=== PATIENT | male | born 1955 | race Caucasian/White ===

== ENCOUNTER 2022-05-08 11:31 | Emergency (ER) | payer OTHER, SELFPAY ==
[2022-05-08 11:35] VITALS: BP 147/84; PULSE 64; RESP 18; TEMP 36.7; O2SAT 95; BMI 36.6
--- NOTE | 2022-05-08 12:09 | XRR_ITS ---
PROCEDURE INFORMATION: Exam: XR Left Wrist Exam date and time: 05/08/2022 12:48 PM Age: 67 years old Clinical indication: Fall with blunt trauma involving the wrist. Recent carpal tunnel surgery 10 days ago. Head a healing wound to left palm. The sutures popped open and has a large open wound TECHNIQUE: Imaging protocol: Radiologic exam of the Left wrist. Views: 1 or 2 views. COMPARISON: No relevant prior studies available. FINDINGS: Bones/joints: There is widening of the scapholunate interval compatible with scapholunate ligament tear. The lunotriquetral ligament interval is maintained. No chondrocalcinosis is seen. [id number] osteoarthritis at the triscaphe and 1st carpometacarpal joints. 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 No acute fracture is identified. Soft tissues: There is marked soft tissue swelling about the wrist most prominent anteriorly. Apparent foci of gas likely reflect open wound. If clinically concern for necrotizing fasciitis or collection, consider MRI with and without contrast to further assess. XR/XR wrist LT 2V 40000 IMPRESSION: 1. There is marked soft tissue swelling about the wrist most prominent anteriorly. Apparent foci of gas likely reflect open wound. If clinically concerned for necrotizing fasciitis or abscess, consider CT with contrast to further assess. 2. Widening of the scapholunate interval compatible with scapholunate ligament tear. 3. [id number] osteoarthritis at the triscaphe and 1st carpometacarpal joints. 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
--- NOTE | 2022-05-08 12:18 | W.ED.EXTPRO ---
Documented by User: Julia Hwang 05/08/22 12:41 HPI - Extremity Problem General: Chief complaint: Extremity Injury, Upper Stated complaint: left hand laceration Time Seen by Provider: 05/08/22 11:41 History of Present Illness: pt had carpel tunnel surgery 1 week ago, was walking dog and dog and pt fell on left wrist and hand reopening surgical site Review of Systems General: Reports: 10 or more systems reviewed and unremarkable except in HPI and below Musc: Reports: extremity pain (left wrist, left hand, left lower extremity ) and extremity swelling (left wrist, LLE ) Skin/Breast: Reports: other (carpel tunnel surgical site opened, wound dehiscence ) PFSH ED PFSH: Medical History Carpal tunnel syndrome of left wrist No pertinent family history Surgical History History of carpal tunnel surgery Physical Exam Const: COMMON NORMALS: no acute distress, patient oriented x3, no limitations and alert GENERAL APPEARANCE: cooperative and comfortable ORIENTATION/CONSCIOUSNESS: Yes awake, Yes oriented to person, Yes oriented to place and Yes oriented to time HENMT: COMMON NORMALS: normocephalic, atraumatic, external ears normal, EAC's normal, TM's normal bilaterally and Normal external nose present HEAD & SCALP: normal to inspection, normocephalic and atraumatic FACE & SINUS: normal facial exam, sinuses nontender and face symmetric NOSE: Normal external nose present, Normal nares present and No nasal discharge present EXTERNAL EAR: Yes external ears normal EXTERNAL AUDITORY CANAL: EAC's normal TYMPANIC MEMBRANE: TM's normal bilaterally MOUTH: Normal oral and palatal mucosa present, lip normal and tongue normal THROAT: posterior oropharynx normal, tonsils normal and uvula midline Eye: COMMON NORMALS: Equal, round and reactive pupils present, EOMs intact bilaterally and conjunctivae normal GENERAL EYE: appearance normal, both eyes and all related structures and normal light reflex EYELID: eyelids normal CONJUNCTIVA: Yes conjunctivae normal PUPIL: Yes Equal, round and reactive pupils present EOM: Yes EOM abnormal DIRECT OPHTHALMOSCOPY: Yes normal light reflex Neck/C-Spine: COMMON NORMALS: full ROM, no lymphadenopathy, supple, no meningeal signs, no JVD and Thyroid normal GENERAL: Yes normal visual inspection THYROID: Thyroid normal CERVICAL SPINE: Yes cervical ROM normal and Yes normal cervical lordosis Lymph: LYMPHATIC: no lymphadenopathy noted Chest: COMMONS NORMALS: normal inspection of the chest and normal palpation of entire chest wall Resp: COMMON NORMALS: normal respiratory effort, No retractions and clear to auscultation bilaterally AUSCULTATION: clear to auscultation bilaterally Cardio: COMMON NORMALS: no JVD, regular rate, regular rhythm, S1 normal heart sound present, S2 normal heart sound present, No gallops present (Cardio), No clicks present (Cardio), No murmurs present (Cardio), No rub (Cardio) and Peripheral pulses 2+ throughout RATE: regular rate RHYTHM: regular rhythm HEART SOUNDS: S1 normal heart sound present and S2 normal heart sound present PERIPHERAL PULSES: Peripheral pulses 2+ throughout GI: COMMON NORMALS: Normal to inspection, nondistended, normoactive bowel sounds present, Soft to palpation, non-tender and no masses PALPATION: Yes Soft to palpation : COMMON NORMALS: Yes no CVA tenderness BLADDER/KIDNEY EXAM: Yes no CVA tenderness Back/Pelvis: COMMON NORMALS: no CVA tenderness, thoracic and lumbar spine normal to inspection, no thoracic nor lumbar tenderness and thoraco-lumbar ROM normal Extremity: COMMON NORMALS: capillary refill normal GENERAL: Yes normal exam except as noted LEFT UPPER EXTREMITY: Yes wrist Left wrist: Yes inspection (swollen ) and Yes ROM (decreased ROM) LEFT LOWER EXTREMITY: Yes lower leg Left lower leg: Yes inspection (normal but pain with palpation ) Neuro: COMMON NORMALS: patient oriented x3, moves all extremities, no focal motor deficits, no sensory deficits noted and gait normal SENSORIUM/ORIENTATION: Yes alert, Yes oriented to person, Yes oriented to place and Yes oriented to time MENINGEAL SIGNS: Yes no meningeal signs Psych: COMMON NORMALS: mental status grossly normal, Normal thought process present, cooperative, normal affect, speech normal and activity/motor behavior normal SPEECH: Yes normal speech THOUGHT PROCESS: Normal thought process present Skin: TRAUMA: laceration (reopening of suture site from carpel tunnel ) linear Course Vital Signs: Vital signs: Vital Signs Temperature 98.1 F 05/08/22 11:35 Pulse Rate 64 05/08/22 11:35 Respiratory Rate 18 05/08/22 11:35 Blood Pressure 147/84 05/08/22 11:35 Pulse Oximetry 95 05/08/22 11:35 Oxygen Delivery Me thod 05/08/22 11:35 MDM - Extremity (Nontraumatic) Medical Decision Making Pt was walking dog, dog got away from pt, pt fell and reopened his left carpel tunnel surgical site (1 week ago surgery); pain in wrist and hand and left lower leg. Pt is weight bearing and up to date on tetanus. Xrays ordered and will proceed with repair of wound once xrays obtained. Discharge Plan Discharge Patient Disposition: Home Clinical Impression: Surgical wound dehiscence Qualifiers: Encounter type: initial encounter Qualified Code(s): T81.31XA - Disruption of external operation (surgical) wound, not elsewhere classified, initial encounter Condition: Stable Prescriptions: New cephalexin 500 mg capsule 500 mg PO Q6H 7 Days Qty: 28 0RF Discharge Orders: Discharge ED (Routine); Ordered 05/08/22 Ordered By: Bubba Silver Referrals: Kiki Hannon FNP-C [Primary Care Provider] - Discharge Diet: Regular Discharge Activity: Limit activity as instructed Patient Instructions: Care For Your Stitches (ED), Wound Care (General) Activity Restrictions/Additional Instructions: Follow-up with medical provider as directed. Do not submerge wound in any kind of water until cleared by surgeon. Use wet-to-dry dressing on wound you can also apply thin layer of triple antibiotic ointment on wound daily. Keep wound covered throughout the day. Take medications as prescribed. Return to the ER or your medical provider if condition worsens. Please read and understand discharge instructions. Thank you for choosing [facility] for your healthcare needs today. Please realize this is an emergency room and that we are providing you with a medical screening exam and this may not be complete and all inclusive of all the testing and or work up that you may need to determine your ailment or severity of your illness. It is very important that you follow up as instructed or that you return to the Emergency Department should you have concerns or if your condition changes or worsens in any way. Sign Out Sign Out Data: Patient Sign Out occurred on 05/08/22 at 13:13. Patient's care was discussed, and care was transferred from to EMILIE Kellogg. Coding Level of Care Code ED Wire Rope Sales Representative for Chg Fwd Exam Comprehensive Documented by User: EMILIE Kellogg 05/08/22 21:06 HPI - Extremity Problem General: Chief complaint: Extremity Injury, Upper Stated complaint: left hand laceration Time Seen by Provider: 05/08/22 11:41 History of Present Illness: pt had carpel tunnel surgery 1 week ago, was walking dog and dog and pt fell on left wrist and hand reopening surgical site. [facility] ED PFSH: Medical History Carpal tunnel syndrome of left wrist No pertinent family history Surgical History History of carpal tunnel surgery Procedures Laceration Laceration 1: Site: upper extremity (wrist) Side (If applicable): left Size (cm): 6 (Dehisced surgical incision wound) Description: linear Depth: simple, single layer Local Anesthetic: lidocaine 1% Amount of anesthesia used (mL): 4 Pre-repair: irrigated extensively (With normal saline and beta iodine.) Skin layer closed with: nylon Size (cm): 3-0 Number of sutures: 7 Technique: simple, interrupted Course Vital Signs: Vital signs: Vital Signs Temperature 98.1 F 05/08/22 11:35 Pulse Rate 64 05/08/22 11:35 Respiratory Rate 18 05/08/22 11:35 Blood Pressure 147/84 05/08/22 11:35 Pulse Oximetry 95 05/08/22 11:35 Oxygen Delivery Me thod 05/08/22 11:35 MDM - Extremity (Nontraumatic) Medical Decision Making Pt was walking dog, dog got away from pt, pt fell and reopened his left carpel tunnel surgical site (1 week ago surgery); pain in wrist and hand and left lower leg. Pt is weight bearing and up to date on tetanus. Xrays ordered and will proceed with repair of wound once xrays obtained. 5 sutures were split upon arrival and were removed from wound. 2 sutures were still intact. Left wrist x-ray showed no acute fractures or findings. Lidocaine 1% was used as local wound was irrigated extensively with normal saline and beta iodine. 7 new sutures were placed to close up surgical wound site. See procedure note for details. Patient was discharged home with a prescription for Keflex. He was told to follow-up with his surgeon on TuesdayMay 10. Return to ED precautions given. Patient understood and agreed with plan. Imaging Data Xray Ortho: My impression: Left wrist x-ray showed no acute fractures or findings. Discharge Plan Discharge Patient Disposition: Home Clinical Impression: Surgical wound dehiscence Qualifiers: Encounter type: initial encounter Qualified Code(s): T81.31XA - Disruption of external operation (surgical) wound, not elsewhere classified, initial encounter Condition: Stable Prescriptions: New cephalexin 500 mg capsule 500 mg PO Q6H 7 Days Qty: 28 0RF Discharge Orders: Discharge ED (Routine); Ordered 05/08/22 Ordered By: Bubba Silver Referrals: Kiki Hannon FNP-C [Primary Care Provider] - Discharge Diet: Regular Discharge Activity: Limit activity as instructed Patient Instructions: Care For Your Stitches (ED), Wound Care (General) Activity Restrictions/Additional Instructions: Follow-up with medical provider as directed. Do not submerge wound in any kind of water until cleared by surgeon. Use wet-to-dry dressing on wound you can also apply thin layer of triple antibiotic ointment on wound daily. Keep wound covered throughout the day. Take medications as prescribed. Return to the ER or your medical provider if condition worsens. Please read and understand discharge instructions. Thank you for choosing [facility] for your healthcare needs today. Please realize this is an emergency room and that we are providing you with a medical screening exam and this may not be complete and all inclusive of all the testing and or work up that you may need to determine your ailment or severity of your illness. It is very important that you follow up as instructed or that you return to the Emergency Department should you have concerns or if your condition changes or worsens in any way. Sign Out Sign Out Data: Patient Sign Out occurred on 05/08/22 at 13:13. Patient's care was discussed, and care was transferred from to EMILIE Kellogg. Coding Level of Care Code ED Wire Rope Sales Representative for Sue Sparrow Exam Comprehensive
== END 2022-05-08 16:07 | disposition home or self-care (01) ==
PROVIDERS: Emergency Provider Physician Assistant; PCP Nurse Practitioner Family
DX: T81.31XA Disruption of external operation (surgical) wound, not elsewhere classified, initial encounter (principal); W18.30XA Fall on same level, unspecified, initial encounter
CPT/HCPCS: 12002; 73100; 99283

== ENCOUNTER 2023-11-07 21:05 | Emergency (ER) | payer OTHER, SELFPAY ==
[2023-11-07 21:09] VITALS: BP 143/90; PULSE 93; RESP 16; TEMP 36.9; O2SAT 98
[2023-11-07 21:17] VITALS: BP 125/86; RESP 18; O2SAT 96
--- NOTE | 2023-11-07 21:43 | CTR_ITS ---
PROCEDURE INFORMATION: Exam: CT Abdomen And Pelvis Without Contrast Exam date and time: 11/07/2023 10:58 PM Age: 68 years old Clinical indication: Abdominal pain; Localized; Prior surgery; Surgery date: 6+ months; Surgery type: Nephrectomy for donation. Stimulator. Jack; Patient HX: C/O lower abd pain with diarrhea x 2 days. History of lymphoma. ; Additional info: Diarrhea, pain, mid and low abdominal pain with diarrhea x2 days TECHNIQUE: Imaging protocol: Computed tomography of the abdomen and pelvis without contrast. Radiation optimization: All CT scans at this facility use at least one of these dose optimization techniques: automated exposure control; mA and/or kV adjustment per patient size (includes targeted exams where dose is matched to clinical indication); or iterative reconstruction. COMPARISON: CR XR lumbar spine 2-3V* [id number] 06/02/2017 11:05 AM RADIATION DOSE METRICS: Total DLP (mGy-cm): 1129.77 FINDINGS: Tubes, catheters and devices: Spinal stimulator. Lungs: Bibasilar opacity changes. Liver: Normal. No mass. Gallbladder and bile ducts: Cholelithiasis with prominence of the gallbladder, consider correlation with ultrasound. Pancreas: Normal. No ductal dilation. Spleen: Normal. No splenomegaly. Adrenal glands: Normal. No mass. Kidneys and ureters: Right kidney 13 mm interpolar region nonobstructing calculus. Stomach and bowel: Prominent fluid in the small bowel without dilation may reflect an enteritis. Diverticulosis without diverticulitis. Appendix: No evidence of appendicitis. Intraperitoneal space: Unremarkable. No free air. No significant fluid collection. Vasculature: Unremarkable. No abdominal aortic aneurysm. Lymph nodes: Unremarkable. No enlarged lymph nodes. Urinary bladder: Unremarkable as visualized. Reproductive: Unremarkable as visualized. Bones/joints: Unremarkable. No acute fracture. Soft tissues: Small bilateral fat containing inguinal hernias without bowel or inflammation. CT/CT abdomen pelvis wo con [id number] IMPRESSION: 1. Prominent fluid in the small bowel without dilation may reflect an enteritis. 2. Cholelithiasis with prominence of the gallbladder, consider correlation with ultrasound. 3. Diverticulosis without diverticulitis. 4. Bibasilar atelectasis. 5. Small bilateral fat containing inguinal hernias without bowel or inflammation. 6. Right kidney 13 mm interpolar region nonobstructing calculus.
--- NOTE | 2023-11-07 21:45 | ED_ITS ---
Documented by User: EMILIE Haynes 11/08/23 02:50 HPI - Abdominal Pain 2 General: Chief Complaint: Abdominal Pain Stated Complaint: Diah Time Seen by Provider: 11/07/23 21:07 Source: patient Mode of arrival: wheelchair Limitations: no limitations History of Present Illness: Patient presents emergency department today brought by family for evaluation treatment of continued episodes of diarrhea, mid and lower abdominal pains, and weakness. Family thought the patient had gotten a foodborne illness from a barbecue pork sandwich he ate on Tuesday night as symptoms started early Tuesday morning. However, patient has continued to have symptoms. He states he has had some many episodes of diarrhea he cannot even provide a ballpark. He states it is straight water which is somewhat green and anytime he tries to take anything in, he immediately has diarrhea. Patient has only had a hard-boiled egg today. He does admit that he has had some nausea but no vomiting. He also believes he has been running fever. Patient has no urinary symptoms but has not had much urinary output today. Patient typically is seen at the [facility]. He has had a colonoscopy in the past where they found polyps and he reports he has chronic issues with GERD. He is supposed be getting an upper GI scope scheduled sometime. Patient denies any recent antibiotic use. He states he is [place]. No others that he is aware of have similar symptoms. Patient informs other staff that he currently only has 1 kidney as he has donated a kidney in the past. Review of Systems 2 General: Reports: 10 or more systems reviewed and unremarkable except in HPI and below PFSH ED 2 PFSH: Medical History No pertinent family history Carpal tunnel syndrome of left wrist Surgical History History of carpal tunnel surgery Physical Exam 2 Const: COMMON NORMALS: patient oriented x3 and alert OTHER: Appears weak and fatigued. He is providing his own history. He is pleasant. Vital signs are stable. HENMT: COMMON NORMALS: normocephalic, atraumatic, hearing grossly normal bilaterally and moist oral mucous membranes HEAD & SCALP: normocephalic and atraumatic Eye: COMMON NORMALS: Equal, round and reactive pupils present, EOMs intact bilaterally and conjunctivae normal CONJUNCTIVA: Yes conjunctivae normal P UPIL: Yes Equal, round and reactive pupils present Neck/C-Spine: COMMON NORMALS: full ROM and no JVD Lymph: LYMPHATIC: no lymphadenopathy noted Resp: COMMON NORMALS: normal respiratory effort, No retractions, No use of accessory muscles and clear to auscultation bilaterally AUSCULTATION: clear to auscultation bilaterally Cardio: COMMON NORMALS: no JVD, regular rate and regular rhythm RATE: r egular rate RHYTHM: regular rhythm GI: OTHER: Hyperactive bowel sounds. Abdomen is soft but he does look somewhat bloated. He indicated some discomfort with palpation across his mid and lower abdomen. No specific point tenderness in the right or lower left quadrants. : COMMON NORMALS: Yes no CVA tenderness BLADDER/KIDNEY EXAM: Yes no CVA tenderness Back/Pelvis: COMMON NORMALS: no CVA tenderness, no thoracic nor lumbar tenderness and thoraco-lumbar ROM normal Extremity: COMMON NORMALS: normal to inspection, full ROM and capillary refill normal Neuro: COMMON NORMALS: patient oriented x3 SENSORIUM/ORIENTATION: Yes alert Psych: COMMON NORMALS: mental status grossly normal, Normal thought process present, cooperative, normal affect and activity/motor behavior normal T HOUGHT PROCESS: Normal thought process present Skin: COMMON NORMALS: no rashes or lesions noted and no wounds GENERAL SKIN EXAM: no rashes or lesions noted Course 2 Vital Signs: Vital signs: Vital Signs Temperature 98.4 F 11/07/23 21:09 Pulse Rate 81 11/08/23 00:23 Respiratory Rate 16 11/08/23 00:23 Blood Pressure 156/79 11/08/23 00:23 Pulse Oximetry 96 11/08/23 00:23 Oxygen Delivery Me thod Room Air 11/07/23 23:30 MDM - Abdominal Pain Medical Decision Making Patient presents today with greater than 24 hours of near constant diarrhea. Patient is extremely fatigued and as he only has 1 kidney, runs the risk of acute kidney injury or failure. Patient requested his nighttime medications while he is here. Nursing obtain his medications list and indicates he takes his morphine and gabapentin at this time. Patient shows no signs of an elevated white blood cell count-no signs of anemia. Patient has a slight decrease in sodium but overall, electrolytes are not significantly abnormal. Patient does have a noticeable decrease in his GFR and elevation in his creatinine though I am unsure of what his typical baseline is as I do not have any recent labs. I was notified by CT that the patient's kidney function is noticeably decreased and CT was obtained with contrast. As patient only has 1 kidney and, has acute decrease in GFR and elevated creatinine without a known baseline, however we did switch the CT examination to without contrast. Patient has been treated with fluids while here in the emergency department as well as antinausea medication to help settle his stomach. He also requested his nighttime morphine and gabapentin. Patient was able to provide a stool sample which showed positive findings of lactoferrin but no blood. C. difficile was also negative. CT examination showed signs of an enteritis. Incidentally there was findings of some gallstones but, it does not correlate with the patient's symptoms or location of pain at this time. Patient also has an incidental finding of a right-sided kidney stone but no signs of any ureteral involvement. Discussed the case with Dr. De Los Santos. Based on the patient's evaluation, symptoms, and CT scan, would recommend treating for the enteritis with antidiarrheal medication. Patient was treated with Bentyl here in the emergency department and a prescription was also sent to the pharmacy on his behalf. He was also given antinausea medicine. After fluids and treatment, patient appears much more comfortable. He is smiling and joking in the room. Discussed the importance of him staying hydrated during this time as he only has 1 kidney. We discussed strict return precautions regarding any change or worsening in his condition. Patient verbalizes understanding and agreement to treatment plan. Differential Diagnosis Likely abdominal pain, calculus of kidney and gastroenteritis; Unlikely acute appendicitis, constipation, diverticulitis, endometriosis, pancreatitis or small bowel obstruction Lab Data 11/07/23 22:13 11/07/23 22:13 Labs/Radiology: Radiology Impressions Abdomen/Pelvis CT 11/07/23 21:43 IMPRESSION: 1. Prominent fluid in the small bowel without dilation may reflect an enteritis. 2. Cholelithiasis with prominence of the gallbladder, consider correlation with ultrasound. 3. Diverticulosis without diverticulitis. 4. Bibasilar atelectasis. 5. Small bilateral fat containing inguinal hernias without bowel or inflammation. 6. Right kidney 13 mm interpolar region nonobstructing calculus. Laboratory Results WBC 6.54 10^3/uL (3.29-11.43) 11/07/23 22:13 RBC 5.01 10^6/uL (3.85-5.65) 11/07/23 22:13 Hgb 14.60 g/dL (11.27-16.99) 11/07/23 22:13 Hct 42.7 % (37-53) 11/07/23 22:13 MCV 85.2 fl (82-101) 11/07/23 22:13 MCH 29.1 pg (27-33) 11/07/23 22:13 MCHC 34.2 g/dL (30-55) 11/07/23 22:13 RDW 13.4 % (12.1-15.1) 11/07/23 22:13 Plt Count 145 10^3/cmm (157-399) L 11/07/23 22:13 MPV 11.1 fL (7.4-10.4) H 11/07/23 22:13 Neut % (Auto) 56.5 % 11/07/23 22:13 Lymph % (Auto) 30.4 % 11/07/23 22:13 Granite % (Auto) 11.6 % 11/07/23 22:13 Eos % (Auto) 0.9 % 11/07/23 22:13 Baso % (Auto) 0.3 % 11/07/23 22:13 Neut # (Auto) 3.69 10^3/uL (1.8-7.7) 11/07/23 22:13 Lymph # (Auto) 2.0 10^3/uL (0.8-4.8) 11/07/23 22:13 Granite # (Auto) 0.8 10^3/uL (0.2-0.9) 11/07/23 22:13 Eos # (Auto) 0.1 10^3/uL (0.0-0.8) 11/07/23 22:13 Baso # (Auto) 0.0 10^3/uL (0.0-0.1) 11/07/23 22:13 Nucleated RBC % (auto) 0 % 11/07/23 22:13 Nucleated RBCs # 0.0 /100WBC 11/07/23 22:13 Sodium 132 mmol/L (136-145) L 11/07/23 22:13 Potassium 3.2 mmol/L (3.5-5.1) L 11/07/23 22:13 Chloride 99 mmol/L (98-107) 11/07/23 22:13 Carbon Dioxide 17 mmol/L (22-29) L 11/07/23 22:13 Anion Gap 19.2 (5-19) H 11/07/23 22:13 BUN 31 mg/dL (8-23) H 11/07/23 22:13 Creatinine 1.8 mg/dL (0.7-1.2) H 11/07/23 22:13 GFR Calculation 37.8 mL/min (90-130) L 11/07/23 22:13 Glucose 108 mg/dL (65-115) 11/07/23 22:13 Calculated Osmolality 281 mOsm/kg (285-295) L 11/07/23 22:13 Calcium 8.9 mg/dL (8.5-10.5) 11/07/23 22:13 Magnesium 1.7 mg/dL (1.7-2.3) 11/07/23 22:13 Total Bilirubin 0.8 mg/dL (0.15-1.2) 11/07/23 22:13 AST 19 U/L (0-40) 11/07/23 22:13 ALT 8 U/L (0-41) 11/07/23 22:13 Alkaline Phosphatase 82 U/L (40-130) 11/07/23 22:13 Total Protein 7.4 g/dL (6.6-8.7) 11/07/23 22:13 Albumin 4.1 g/dL (3.5-5.2) 11/07/23 22:13 Globulin 3.3 g/dL (1.3-4.6) 11/07/23 22:13 Lipase 20 U/L (13-60) 11/07/23 22:13 Procalcitonin 0.24 ng/mL (0-0.5) 11/07/23 22:13 Urine Color Dark yellow (Yellow) 11/07/23 23:25 Urine Appearance Clear (CLEAR) 11/07/23 23:25 Urine pH 5 (5-7) 11/07/23 23:25 Ur Specific [place] 1.020 (1.005-1.030) 11/07/23 23:25 Urine Protein 1+ (Negative) H 11/07/23 23:25 Urine Glucose (UA) Norm (Normal) 11/07/23 23:25 Urine Ketones Negative (Negative) 11/07/23 23:25 Urine Blood Neg (Negative) 11/07/23 23:25 Urine Nitrate Negative (Negative) 11/07/23 23:25 Urine Bilirubin 1+ (Negative) H 11/07/23 23:25 Urine Urobilinogen Neg mg/dL (Negative) 11/07/23 23:25 Ur Leukocyte Esterase Negative (Negative) 11/07/23 23:25 Urine RBC None /hpf (0-2) 11/07/23 23:25 Urine WBC None /hpf (0-5) 11/07/23 23:25 Ur Squamous Epith Cells 0-4 /hpf (0-5) H 11/07/23 23:25 Amorphous Sediment Not Reportable 11/07/23 23:25 Urine Bacteria Trace /hpf (NONE) 11/07/23 23:25 Hyaline Casts 0-4 /lpf H 11/07/23 23:25 Urine Mucus 3+ /hpf 11/07/23 23:25 C. difficile (PCR) Negative (Negative) 11/07/23 21:57 Influenza Type A Ag negative (Negative) 11/07/23 22:01 Influenza Type B Ag negative (Negative) 11/07/23 22:01 SARS-CoV-2 Ag (Rapid) negative (Negative) 11/07/23 22:01 All radiology interpretation(s) finalized by discharge Discharge Plan Discharge Patient Disposition: Home Clinical Impression: Enteritis, Diarrhea Condition: Stable Prescriptions: New dicyclomine 10 mg capsule 10 mg PO TID Qty: 14 0RF ondansetron 4 mg tablet,disintegrating 4 mg PO Q8H 5 Days Qty: 15 0RF Discharge Orders: Discharge ED (Routine); Ordered 11/08/23 Ordered By: Linda Westbrook Referrals: Kiki Hannon FNP-C [Primary Care Provider] - Discharge Diet: Advance as tolerated Discharge Activity: Increase activity as tolerated Patient Instructions: Acute Diarrhea (ED) Activity Restrictions/Additional Instructions: Your evaluation today reveals more of a viral enteritis type pattern. This viral illness causes inflammation of the bowel-especially the small bowel, leading to recurrent episodes of diarrhea. The most important thing is to stay hydrated this time-especially if you only have 1 kidney. I am going to provide you medication to help calm your stomach and to help ease your diarrhea. We encourage you to increase and push fluids for the next couple of days. You may still have breakthrough episodes of diarrhea. Carefully watch for black or tarry stools or bright red blood per rectum. If these agree need to be seen or evaluated. You are unable to tolerate fluids due to any new onset of vomiting, worsening abdominal pain, or continued/worsening diarrhea we do recommend to be seen and reevaluated again. Coding Level of Care Code ED Director Immunology for Chg Fwd Documented by User: Phil De Los Santos MD 11/09/23 18:41 HPI - Abdominal Pain 2 General: Chief Complaint: Abdominal Pain Stated Complaint: Diah Time Seen by Provider: 11/07/23 21:07 [facility] ED 2 PFSH: Medical History No pertinent family history Carpal tunnel syndrome of left wrist Surgical History History of carpal tunnel surgery Course 2 Vital Signs: Vital signs: Vital Signs Temperature 98.4 F 11/07/23 21:09 Pulse Rate 81 11/08/23 00:23 Respiratory Rate 16 11/08/23 00:23 Blood Pressure 156/79 11/08/23 00:23 Pulse Oximetry 96 11/08/23 00:23 Oxygen Delivery Me thod Room Air 11/07/23 23:30 MDM - Abdominal Pain Medical Decision Making Patient presents today with greater than 24 hours of near constant diarrhea. Patient is extremely fatigued and as he only has 1 kidney, runs the risk of acute kidney injury or failure. Patient requested his nighttime medications while he is here. Nursing obtain his medications list and indicates he takes his morphine and gabapentin at this time. Patient shows no signs of an elevated white blood cell count-no signs of anemia. Patient has a slight decrease in sodium but overall, electrolytes are not significantly abnormal. Patient does have a noticeable decrease in his GFR and elevation in his creatinine though I am unsure of what his typical baseline is as I do not have any recent labs. I was notified by CT that the patient's kidney function is noticeably decreased and CT was obtained with contrast. As patient only has 1 kidney and, has acute decrease in GFR and elevated creatinine without a known baseline, however we did switch the CT examination to without contrast. Patient has been treated with fluids while here in the emergency department as well as antinausea medication to help settle his stomach. He also requested his nighttime morphine and gabapentin. Patient was able to provide a stool sample which showed positive findings of lactoferrin but no blood. C. difficile was also negative. CT examination showed signs of an enteritis. Incidentally there was findings of some gallstones but, it does not correlate with the patient's symptoms or location of pain at this time. Patient also has an incidental finding of a right-sided kidney stone but no signs of any ureteral involvement. Discussed the case with Dr. De Los Santos. Based on the patient's evaluation, symptoms, and CT scan, would recommend treating for the enteritis with antidiarrheal medication. Patient was treated with Bentyl here in the emergency department and a prescription was also sent to the pharmacy on his behalf. He was also given antinausea medicine. After fluids and treatment, patient appears much more comfortable. He is smiling and joking in the room. Discussed the importance of him staying hydrated during this time as he only has 1 kidney. We discussed strict return precautions regarding any change or worsening in his condition. Patient verbalizes understanding and agreement to treatment plan. Attending physician attestation I discussed the patient's history of present illness, physical exam findings, pertinent labs, pertinent radiographic exams and plan of care with the midlevel provider. I did personally have a [id number] evaluation and discussion with the patient regarding the plan of care. I did discuss with the patient given the CT scan findings and need for follow-up with her primary care and possibly general surgery for additional evaluation for her cholelithiasis and to evaluate her inguinal hernias. Patient was advised that there was a right renal calculi that was 13 mm and the importance of following up with urology for evaluation and possible treatment/removal. Medical Records I reviewed the patient's medical records. Lab Data I reviewed the patient's lab results. 11/07/23 22:13 11/07/23 22:13 Labs/Radiology: Radiology Impressions Abdomen/Pelvis CT 11/07/23 21:43 IMPRESSION: 1. Prominent fluid in the small bowel without dilation may reflect an enteritis. 2. Cholelithiasis with prominence of the gallbladder, consider correlation with ultrasound. 3. Diverticulosis without diverticulitis. 4. Bibasilar atelectasis. 5. Small bilateral fat containing inguinal hernias without bowel or inflammation. 6. Right kidney 13 mm interpolar region nonobstructing calculus. Laboratory Results WBC 6.54 10^3/uL (3.29-11.43) 11/07/23 22:13 RBC 5.01 10^6/uL (3.85-5.65) 11/07/23 22:13 Hgb 14.60 g/dL (11.27-16.99) 11/07/23 22:13 Hct 42.7 % (37-53) 11/07/23 22:13 MCV 85.2 fl (82-101) 11/07/23 22:13 MCH 29.1 pg (27-33) 11/07/23 22:13 MCHC 34.2 g/dL (30-55) 11/07/23 22:13 RDW 13.4 % (12.1-15.1) 11/07/23 22:13 Plt Count 145 10^3/cmm (157-399) L 11/07/23 22:13 MPV 11.1 fL (7.4-10.4) H 11/07/23 22:13 Neut % (Auto) 56.5 % 11/07/23 22:13 Lymph % (Auto) 30.4 % 11/07/23 22:13 Granite % (Auto) 11.6 % 11/07/23 22:13 Eos % (Auto) 0.9 % 11/07/23 22:13 Baso % (Auto) 0.3 % 11/07/23 22:13 Neut # (Auto) 3.69 10^3/uL (1.8-7.7) 11/07/23 22:13 Lymph # (Auto) 2.0 10^3/uL (0.8-4.8) 11/07/23 22:13 Granite # (Auto) 0.8 10^3/uL (0.2-0.9) 11/07/23 22:13 Eos # (Auto) 0.1 10^3/uL (0.0-0.8) 11/07/23 22:13 Baso # (Auto) 0.0 10^3/uL (0.0-0.1) 11/07/23 22:13 Nucleated RBC % (auto) 0 % 11/07/23 22:13 Nucleated RBCs # 0.0 /100WBC 11/07/23 22:13 Sodium 132 mmol/L (136-145) L 11/07/23 22:13 Potassium 3.2 mmol/L (3.5-5.1) L 11/07/23 22:13 Chloride 99 mmol/L (98-107) 11/07/23 22:13 Carbon Dioxide 17 mmol/L (22-29) L 11/07/23 22:13 Anion Gap 19.2 (5-19) H 11/07/23 22:13 BUN 31 mg/dL (8-23) H 11/07/23 22:13 Creatinine 1.8 mg/dL (0.7-1.2) H 11/07/23 22:13 GFR Calculation 37.8 mL/min (90-130) L 11/07/23 22:13 Glucose 108 mg/dL (65-115) 11/07/23 22:13 Calculated Osmolality 281 mOsm/kg (285-295) L 11/07/23 22:13 Calcium 8.9 mg/dL (8.5-10.5) 11/07/23 22:13 Magnesium 1.7 mg/dL (1.7-2.3) 11/07/23 22:13 Total Bilirubin 0.8 mg/dL (0.15-1.2) 11/07/23 22:13 AST 19 U/L (0-40) 11/07/23 22:13 ALT 8 U/L (0-41) 11/07/23 22:13 Alkaline Phosphatase 82 U/L (40-130) 11/07/23 22:13 Total Protein 7.4 g/dL (6.6-8.7) 11/07/23 22:13 Albumin 4.1 g/dL (3.5-5.2) 11/07/23 22:13 Globulin 3.3 g/dL (1.3-4.6) 11/07/23 22:13 Lipase 20 U/L (13-60) 11/07/23 22:13 Procalcitonin 0.24 ng/mL (0-0.5) 11/07/23 22:13 Urine Color Dark yellow (Yellow) 11/07/23 23:25 Urine Appearance Clear (CLEAR) 11/07/23 23:25 Urine pH 5 (5-7) 11/07/23 23:25 Ur Specific [place] 1.020 (1.005-1.030) 11/07/23 23:25 Urine Protein 1+ (Negative) H 11/07/23 23:25 Urine Glucose (UA) Norm (Normal) 11/07/23 23:25 Urine Ketones Negative (Negative) 11/07/23 23:25 Urine Blood Neg (Negative) 11/07/23 23:25 Urine Nitrate Negative (Negative) 11/07/23 23:25 Urine Bilirubin 1+ (Negative) H 11/07/23 23:25 Urine Urobilinogen Neg mg/dL (Negative) 11/07/23 23:25 Ur Leukocyte Esterase Negative (Negative) 11/07/23 23:25 Urine RBC None /hpf (0-2) 11/07/23 23:25 Urine WBC None /hpf (0-5) 11/07/23 23:25 Ur Squamous Epith Cells 0-4 /hpf (0-5) H 11/07/23 23:25 Amorphous Sediment Not Reportable 11/07/23 23:25 Urine Bacteria Trace /hpf (NONE) 11/07/23 23:25 Hyaline Casts 0-4 /lpf H 11/07/23 23:25 Urine Mucus 3+ /hpf 11/07/23 23:25 C. difficile (PCR) Negative (Negative) 11/07/23 21:57 Influenza Type A Ag negative (Negative) 11/07/23 22:01 Influenza Type B Ag negative (Negative) 11/07/23 22:01 SARS-CoV-2 Ag (Rapid) negative (Negative) 11/07/23 22:01 Discharge Plan Discharge Patient Disposition: Home Clinical Impression: Enteritis, Diarrhea Condition: Stable Prescriptions: New dicyclomine 10 mg capsule 10 mg PO TID Qty: 14 0RF ondansetron 4 mg tablet,disintegrating 4 mg PO Q8H 5 Days Qty: 15 0RF Discharge Orders: Discharge ED (Routine); Ordered 11/08/23 Ordered By: Linda Westbrook Referrals: Kiki Hannon FNP-C [Primary Care Provider] - Discharge Diet: Advance as tolerated Discharge Activity: Increase activity as tolerated Patient Instructions: Acute Diarrhea (ED) Activity Restrictions/Additional Instructions: Your evaluation today reveals more of a viral enteritis type pattern. This viral illness causes inflammation of the bowel-especially the small bowel, leading to recurrent episodes of diarrhea. The most important thing is to stay hydrated this time-especially if you only have 1 kidney. I am going to provide you medication to help calm your stomach and to help ease your diarrhea. We encourage you to increase and push fluids for the next couple of days. You may still have breakthrough episodes of diarrhea. Carefully watch for black or tarry stools or bright red blood per rectum. If these agree need to be seen or evaluated. You are unable to tolerate fluids due to any new onset of vomiting, worsening abdominal pain, or continued/worsening diarrhea we do recommend to be seen and reevaluated again. Coding Level of Care Code ED Director Immunology for Sue Sparrow
[2023-11-07] MEDS: sodium chloride 0.9% 1,000 ML 999 ML IV (22:14)
[2023-11-07] MEDS: metoclopramide 5 mg/mL SDV 2 mL 10 MG IVP (22:15)
[2023-11-07 22:20] VITALS: BP 148/95; PULSE 74; RESP 16; O2SAT 97
[2023-11-07 22:20] LABS: Basophils % 0.3 %; Eosinophils # 0.1 10^3/uL (0.0-0.8); Eosinophils % 0.9 %; Hematocrit 42.7 % (37-53); Lymphocytes % 30.4 %; Mean Corpuscular HGB Conc 34.2 g/dL (30-55); Mean Corpuscular Hemoglobin 29.1 pg (27-33); Mean Corpuscular Volume 85.2 fl (82-101); Mean Platelet Volume 11.1 fL (7.4-10.4); Monocytes # 0.8 10^3/uL (0.2-0.9); Monocytes % 11.6 %; Neutrophils # 3.69 10^3/uL (1.8-7.7); Neutrophils % 56.5 %; Nucleated Red Blood Cells % 0 %; Platelet Count 145 10^3/cmm (157-399); Red Blood Count 5.01 10^6/uL (3.85-5.65); Red Cell Distribution Width 13.4 % (12.1-15.1); White Blood Count 6.54 10^3/uL (3.29-11.43)
[2023-11-07 22:30] VITALS: BP 141/91; PULSE 84; RESP 16; O2SAT 92
[2023-11-07 22:38] LABS: Influenza A by IFA negative (Negative); Influenza B by IFA negative (Negative); SARS Covid-2 Antigen negative (Negative)
[2023-11-07 22:45] LABS: Alanine Aminotransferase 8 U/L (0-41); Albumin Level 4.1 g/dL (3.5-5.2); Alkaline Phosphatase 82 U/L (40-130); Anion Gap 19.2 (5-19); Aspartate Amino Transferase 19 U/L (0-40); Blood Urea Nitrogen 31 mg/dL (8-23); Calcium 8.9 mg/dL (8.5-10.5); Carbon Dioxide 17 mmol/L (22-29); Chloride 99 mmol/L (98-107); Creatinine Clr Calc Pharmacy 57.1115; Globulin 3.3 g/dL (1.3-4.6); Glomerular Filtration Rate 37.8 mL/min (90-130); Glucose 108 mg/dL (65-115); Lipase 20 U/L (13-60); Magnesium 1.7 mg/dL (1.7-2.3); Osmolality Calculated 281 mOsm/kg (285-295); Potassium 3.2 mmol/L (3.5-5.1); Sodium 132 mmol/L (136-145); Total Bilirubin 0.8 mg/dL (0.15-1.2); Total Protein 7.4 g/dL (6.6-8.7)
[2023-11-07 22:50] LABS: Procalcitonin 0.24 ng/mL (0-0.5)
[2023-11-07 22:57] LABS: C.Diff PCR (Lab) NEGATIVE (Negative)
[2023-11-07 23:00] VITALS: PULSE 94; O2SAT 95
[2023-11-07] MEDS: gabapentin 400 mg Capsule 800 MG PO (23:28)
[2023-11-07] MEDS: morphine ER (12 HR) 15 mg Tablet PO (23:28)
[2023-11-07 23:30] VITALS: BP 143/84; PULSE 90; RESP 18; O2SAT 96
[2023-11-07 23:43] LABS: Add Urine Microscopic? YES; Bilirubin Urine 1+ (Negative); Blood Urine Neg (Negative); Glucose Urine UA Norm (Normal); Ketones Urine Negative (Negative); Leukocyte Esterase Urine Negative (Negative); Nitrate Urine Negative (Negative); Protein Urine 1+ (Negative); Urine Appearance Clear (CLEAR); Urine Color Dark Yellow (Yellow); Urobilinogen Urine Neg (Negative); pH Urine 5 (5-7)
[2023-11-07 23:44] LABS: Add Urine Culture? No; Bacteria Urine TRACE /hpf; Hyaline Casts Urine 0-4 /lpf; Mucus Urine 3+ /hpf; Squamous Epithelial Cell Urine 0-4 /hpf (0-5)
[2023-11-07] MEDS: dicyclomine 20 mg Tablet PO (23:53)
[2023-11-08] VITALS: BP 162/104; PULSE 79; RESP 18; O2SAT 96
[2023-11-08 00:23] VITALS: BP 156/79; PULSE 81; RESP 16; O2SAT 96
== END 2023-11-08 00:26 | disposition home or self-care (01) ==
PROVIDERS: Emergency Provider Physician Assistant; PCP Nurse Practitioner Family
DX: K52.9 Noninfective gastroenteritis and colitis, unspecified (principal); Z11.52 Encounter for screening for COVID-19
CPT/HCPCS: 74176; 80053; 81001; 82274; 83630; 83690; 83735; 84145; 85025; 87045; 87177; 87209; 87426; 87427; 87449; 87493; 87804; 96374; 99285; J2765; J7030

== ENCOUNTER 2023-12-05 22:10 | Emergency (ER) | payer OTHER, SELFPAY ==
[2023-12-05 22:14] VITALS: BP 165/101; PULSE 65; RESP 18; TEMP 36.6; O2SAT 94
--- NOTE | 2023-12-05 22:35 | W.ED.SKABFB ---
HPI - Skin/Abscess/Foreign Bdy General: Chief complaint: Skin/Abscess/Foreign Body Stated complaint: Fish Hook in Hand Time Seen by Provider: 12/05/23 22:26 History of Present Illness: Patient has a fishhook stuck in the tip of his index finger of his right hand. He tried it it out but could not. He is up-to-date on his tetanus. Review of Systems Narrative: Constitutional symptoms: Negative except as documented in HPI. Skin symptoms: Negative except as documented in HPI. Eye symptoms: Negative except as documented in HPI. ENMT symptoms: Negative except as documented in HPI. Respiratory symptoms: Negative except as documented in HPI. Cardiovascular symptoms: Negative except as documented in HPI. Gastrointestinal symptoms: Negative except as documented in HPI. Genitourinary symptoms: Negative except as documented in HPI. Musculoskeletal symptoms: Negative except as documented in HPI. Neurologic symptoms: Negative except as documented in HPI. Psychiatric symptoms: Negative except as documented in HPI. Endocrine symptoms: Negative except as documented in HPI. [facility] ED PFSH: Medical History No pertinent family history Carpal tunnel syndrome of left wrist Surgical History History of carpal tunnel surgery Physical Exam Narrative: EXAM NARRATIVE: General: Alert, no acute distress. Skin: warm and dry, fishhook in the distal palmar side of right hand index finger. Head: Normocephalic Neck: Trachea midline Eye: Extraocular movements are intact. Ears, nose, mouth and throat: Oral mucosa moist Respiratory: Respirations are non-labored Musculoskeletal: Normal ROM Neurological: Alert and oriented, No focal neurological deficit observed. Psychiatric: Cooperative, appropriate mood & affect. Course Vital Signs: Vital signs: Vital Signs Temperature 98 F 12/05/23 22:14 Pulse Rate 65 12/05/23 22:14 Respiratory Rate 18 12/05/23 22:14 Blood Pressure 165/101 12/05/23 22:14 Pulse Oximetry 94 12/05/23 22:14 Oxygen Delivery Me thod Room Air 12/05/23 22:14 MDM - Skin/Abscess/Foreign Bdy Medicial Decision Making Procedure note: 2 cc of 2% lidocaine were injected into the tip of the finger. I used a pair pliers to pull the fishhook free. This was tolerated well. Assessment and plan: [place] in finger/foreign body - Discharged home - Discussed plan with patient. Answered any questions. - Evaluation and treatment of this problem were appropriate in the emergency setting. No radiology studies performed this visit Discharge Plan Discharge Patient Disposition: Home Clinical Impression: Fish hook in finger Condition: Stable Prescriptions: No Action dicyclomine 10 mg capsule 10 mg PO TID Qty: 14 0RF Discharge Orders: Discharge ED (Routine); Ordered 12/05/23 Ordered By: Pilar Madsen Referrals: Kiki Hannon FNP-C [Primary Care Provider] - 4-7 days Discharge Diet: Usual diet Discharge Activity: Resume usual activity Patient Instructions: Puncture Wound (ED) Activity Restrictions/Additional Instructions: Thank you for choosing [facility] for your healthcare needs today. Please realize this is an emergency room and that we are providing you with a medical screening exam and this may not be complete and all inclusive of all the testing and or work up that you may need to determine your ailment or severity of your illness. You have been screened and evaluated and felt safe for discharge. Health conditions do change or evolve sometimes and as such it is important that you follow up with your Primary Doctor to be re checked, 3-5 days is a general good time frame for follow up. You are always welcome to return to the ED for re assessment if your symptoms are worsening or you have new concerns Coding Level of Care Code ED Log Loader Helper for Sue Sparrow
[2023-12-05] MEDS: bacitracin ointment Pkt 1 EACH TOPICAL (22:50)
[2023-12-05 22:51] VITALS: BP 165/101; PULSE 65; RESP 18; TEMP 36.6; O2SAT 94
== END 2023-12-05 22:52 | disposition home or self-care (01) ==
PROVIDERS: Emergency Provider Emergency Medicine; PCP Nurse Practitioner Family
DX: S61.240A Puncture wound with foreign body of right index finger without damage to nail, initial encounter (principal); W26.8XXA Contact with other sharp object(s), not elsewhere classified, initial encounter
CPT/HCPCS: 99283

== ENCOUNTER 2024-12-15 13:03 | Emergency (ER) | payer OTHER, MEDICARE, SELFPAY ==
[2024-12-15 13:23] VITALS: BP 136/78; PULSE 92; RESP 17; TEMP 37.7; O2SAT 96; BMI 36.6
[2024-12-15 15:50] LABS: Adenovirus Not Detected (NOT DETECT); Chlamydia Pneumoniae Not Detected (NOT DETECT); Coronavirus 229E,HKU1,NL63,OC4 Not Detected (NOT DETECT); Human Metapneumovirus Not Detected (NOT DETECT); Human Rhinovirus/Enterovirus Not Detected (NOT DETECT); Influenza A Not Detected (NOT DETECT); Influenza A H1 Not Detected (NOT DETECT); Influenza A H1-2009 Not Detected (NOT DETECT); Influenza A H3 Not Detected (NOT DETECT); Influenza B Not Detected (NOT DETECT); Mycoplasma Pneumoniae Not Detected (NOT DETECT); Parainfluenza Virus Type 1 Not Detected (NOT DETECT); Parainfluenza Virus Type 2 Not Detected (NOT DETECT); Parainfluenza Virus Type 3 Detected (NOT DETECT); Parainfluenza Virus Type 4 Not Detected (NOT DETECT); Respiratory Syncytial Virus A Not Detected (NOT DETECT); Respiratory Syncytial Virus B Not Detected (NOT DETECT); SARS-COV-2 Not Detected (NOT DETECT)
[2024-12-15 16:56] VITALS: BP 138/88; PULSE 81; RESP 18; O2SAT 95
[2024-12-15] MEDS: sodium chloride 0.9% 1,000 ML 999 ML IV (17:15)
--- NOTE | 2024-12-15 17:20 | ED_ITS ---
HPI - Nausea/Vomiting/Diarrhea 2 General: Chief complaint: Nausea/Vomiting/Diarrhea Stated complaint: fever, coughing Time Seen by Provider: 12/15/24 16:45 History of Present Illness: 69-year-old male presents to the emergen cy room with complaints of cough fever nausea vomiting congestion weakness. He has also had some ageusia. Patient has had a nonproductive cough loose stools myalgias headache low-grade fever. Associated symtoms: Reports fatigue and malaise; Denies chest pain or dysuria Related Data Previous Rx's ?Medication ?Instructions ?Recorded dicyclomine 10 mg capsule 10 mg PO TID #14 caps Allergies Allergy/AdvReac Type Severity Reaction Status Date / Time naproxen (From Naprosyn) Allergy Unknown Verified 11/07/23 21:17 rofecoxib (From Vioxx) Allergy Unknown Verified 11/07/23 21:17 Review of Systems 2 Const: Reports: chills, body aches, fatigue and malaise; Denies: fever(s) Card: Denies: chest pain Resp: Denies: dyspnea GI: Denies: abdominal pain : Denies: dysuria, urinary frequency or urinary urgency Musc: Denies: neck pain or back pain Skin/Breast: Denies: rash PFSH ED 2 PFSH: Medical History No pertinent family history Carpal tunnel syndrome of left wrist Surgical History History of carpal tunnel surgery Physical Exam 2 Const: GENERAL APPEARANCE: cooperative ORIENTATION/CONSCIOUSNESS: Yes awake, Yes oriented to person, Yes oriented to place and Yes oriented to time HENMT: COMMON NORMALS: normocephalic, atraumatic and hearing grossly normal bilaterally HEAD & SCALP: normocephalic and atraumatic Resp: COMMON NORMALS: normal respiratory effort, No retractions, No use of accessory muscles and clear to auscultation bilaterally AUSCULTATION: clear to auscultation bilaterally Cardio: COMMON NORMALS: regular rate, regular rhythm and No murmurs present (Cardio) RATE: regular rate RHYTHM: regular rhythm GI: COMMON NORMALS: Soft to palpation and No hepatosplenomegaly present A USCULTATION: Yes normoactive bowel sounds PALPATION: Yes Soft to palpation, No Tenderness to palpation present (GI), No Guarding due to palpation present (GI) and Yes No hepatosplenomegaly present Extremity: COMMON NORMALS: normal to inspection, capillary refill normal, no clubbing, cyanosis or edema, no calf tenderness and no pedal edema Neuro: SENSORIUM/ORIENTATION: Yes oriented to person, Yes oriented to place and Yes oriented to time Skin: COMMON NORMALS: no rashes or lesions noted GENERAL SKIN EXAM: no rashes or lesions noted Course 2 Vital Signs: Vital signs: Vital Signs Temperature 99.8 F H 12/15/24 13:23 Pulse Rate 92 12/15/24 13:23 Respiratory Rate 17 12/15/24 13:23 Blood Pressure 136/78 12/15/24 13:23 Pulse Oximetry 96 12/15/24 13:23 Oxygen Delivery Me thod Room Air 12/15/24 13:23 MDM - Nausea/Vomiting/Diarrhea Medical Decision Making Labs and imaging did not show any secondary infection we will discharge patient home supportive cares and follow-up with primary care as needed Medical Records I reviewed the patient's medical records. Lab Data I reviewed the patient's lab results. 12/15/24 17:15 12/15/24 17:15 Laboratory Results WBC 4.05 10^3/uL (3.29-11.43) 12/15/24 17:15 RBC 4.78 10^6/uL (3.85-5.65) 12/15/24 17:15 Hgb 13.50 g/dL (11.27-16.99) 12/15/24 17:15 Hct 42.7 % (37-53) 12/15/24 17:15 MCV 89.3 fl (82-101) 12/15/24 17:15 MCH 28.2 pg (27-33) 12/15/24 17:15 MCHC 31.6 g/dL (30-55) 12/15/24 17:15 RDW 13.2 % (12.1-15.1) 12/15/24 17:15 Plt Count 112 10^3/cmm (157-399) L 12/15/24 17:15 MPV 12.0 fL (7.4-10.4) H 12/15/24 17:15 Neut % (Auto) 59.5 % 12/15/24 17:15 Lymph % (Auto) 26.4 % 12/15/24 17:15 Miller % (Auto) 9.9 % 12/15/24 17:15 Eos % (Auto) 3.5 % 12/15/24 17:15 Baso % (Auto) 0.7 % 12/15/24 17:15 Neut # (Auto) 2.41 10^3/uL (1.8-7.7) 12/15/24 17:15 Lymph # (Auto) 1.1 10^3/uL (0.8-4.8) 12/15/24 17:15 Miller # (Auto) 0.4 10^3/uL (0.2-0.9) 12/15/24 17:15 Eos # (Auto) 0.1 10^3/uL (0.0-0.8) 12/15/24 17:15 Baso # (Auto) 0.0 10^3/uL (0.0-0.1) 12/15/24 17:15 Nucleated RBC % (auto) 0 % 12/15/24 17:15 Nucleated RBCs # 0.0 /100WBC 12/15/24 17:15 Sodium 137 mmol/L (136-145) 12/15/24 17:15 Potassium 4.1 mmol/L (3.5-5.1) 12/15/24 17:15 Chloride 101 mmol/L (98-107) 12/15/24 17:15 Carbon Dioxide 23 mmol/L (22-29) 12/15/24 17:15 Anion Gap 17.1 (5-19) 12/15/24 17:15 BUN 12 mg/dL (8-23) 12/15/24 17:15 Creatinine 1.4 mg/dL (0.7-1.2) H 12/15/24 17:15 GFR Calculation 50.4 mL/min (90-130) L 12/15/24 17:15 Glucose 84 mg/dL (65-115) 12/15/24 17:15 Calculated Osmolality 283 mOsm/kg (285-295) L 12/15/24 17:15 Calcium 8.6 mg/dL (8.5-10.5) 12/15/24 17:15 Total Bilirubin 0.5 mg/dL (0.15-1.2) 12/15/24 17:15 AST 16 U/L (0-40) 12/15/24 17:15 ALT 6 U/L (0-41) 12/15/24 17:15 Alkaline Phosphatase 67 U/L (40-130) 12/15/24 17:15 Total Protein 6.7 g/dL (6.6-8.7) 12/15/24 17:15 Albumin 3.8 g/dL (3.5-5.2) 12/15/24 17:15 Globulin 2.9 g/dL (1.3-4.6) 12/15/24 17:15 Adenovirus (PCR) Not detected (NOT DETECT) 12/15/24 13:50 C. pneumoniae DNA (PCR) Not detected (NOT DETECT) 12/15/24 13:50 Coronavirus 229E (PCR) Not detected (NOT DETECT) 12/15/24 13:50 Human Metapneumovir PCR Not detected (NOT DETECT) 12/15/24 13:50 Influenza A (H1) PCR Not detected (NOT DETECT) 12/15/24 13:50 Influ A (H1/09) PCR Not detected (NOT DETECT) 12/15/24 13:50 Influenza A (H3) PCR Not detected (NOT DETECT) 12/15/24 13:50 Influenza Type A (PCR) Not detected (NOT DETECT) 12/15/24 13:50 Influenza Type B (PCR) Not detected (NOT DETECT) 12/15/24 13:50 M. pneumoniae (PCR) Not detected (NOT DETECT) 12/15/24 13:50 Parainfluenza 1 (PCR) Not detected (NOT DETECT) 12/15/24 13:50 Parainfluenza 2 (PCR) Not detected (NOT DETECT) 12/15/24 13:50 Parainfluenza 3 (PCR) Detected (NOT DETECT) A 12/15/24 13:50 Parainfluenza 4 (PCR) Not detected (NOT DETECT) 12/15/24 13:50 RSV Type A (PCR) Not detected (NOT DETECT) 12/15/24 13:50 RSV Type B (PCR) Not detected (NOT DETECT) 12/15/24 13:50 Entero/Rhino (PCR) Not detected (NOT DETECT) 12/15/24 13:50 SARS-CoV-2 (PCR) Not detected (NOT DETECT) 12/15/24 13:50 XR interpretation done by ED provider, pending radiology final review Discharge Plan Discharge Patient Disposition: Home Clinical Impression: Parainfluenza Condition: Stable Prescriptions: No Action dicyclomine 10 mg capsule 10 mg PO TID Qty: 14 0RF Discharge Orders: Discharge ED (Routine); Ordered 12/15/24 Ordered By: Miky Coelho Referrals: Kiki Hannon FNP-C [Primary Care Provider, Family Practice] Discharge Diet: Usual diet Patient Instructions: Influenza (ED), Opioid Safety, Pain Management Activity Restrictions/Additional Instructions: Thank you for choosing [facility] for your healthcare needs today. It is very important that you follow up as instructed or that you return to the Emergency Department should you have concerns or if your condition changes or worsens in any way. You were seen in the emergency room with complaints of flulike symptoms. Respiratory panel showed parainfluenza was positive. Your other labs and chest x-ray did not show any acute abnormality. There is no treatment for para influenza. Discharge information you were given was for influenza which is similar. Supportive cares Tylenol and ibuprofen increase fluid intake Tylenol and ibuprofen for fever and muscle aches Print Language: Palestinian Coding Level of Care Code ED Specialties Operator for Sue Sparrow
[2024-12-15 17:23] LABS: Basophils % 0.7 %; Eosinophils # 0.1 10^3/uL (0.0-0.8); Eosinophils % 3.5 %; Hematocrit 42.7 % (37-53); Lymphocytes # 1.1 10^3/uL (0.8-4.8); Lymphocytes % 26.4 %; Mean Corpuscular HGB Conc 31.6 g/dL (30-55); Mean Corpuscular Hemoglobin 28.2 pg (27-33); Mean Corpuscular Volume 89.3 fl (82-101); Monocytes # 0.4 10^3/uL (0.2-0.9); Monocytes % 9.9 %; Neutrophils # 2.41 10^3/uL (1.8-7.7); Neutrophils % 59.5 %; Nucleated Red Blood Cells % 0 %; Platelet Count 112 10^3/cmm (157-399); Red Blood Count 4.78 10^6/uL (3.85-5.65); Red Cell Distribution Width 13.2 % (12.1-15.1); White Blood Count 4.05 10^3/uL (3.29-11.43)
[2024-12-15 17:26] VITALS: BP 163/87; PULSE 76; RESP 21; O2SAT 97
--- NOTE | 2024-12-15 17:32 | XRR_ITS ---
PROCEDURE INFORMATION: Exam: XR Chest Exam date and time: 12/15/2024 5:35 PM Age: 69 years old Clinical indication: Dyspnea; PT presents to ED with C/O fever, n/v, cough, congestion, weakness, altered taste x1 week. ; Additional info: Dyspnea/cough TECHNIQUE: Imaging protocol: Radiologic exam of the chest. Views: 1 view. COMPARISON: CT abdomen pelvis con [id number] 11/07/2023 10:58 PM FINDINGS: Lungs: Mild emphysematous changes suspected. Pleural spaces: Unremarkable. No pleural effusion. No pneumothorax. Heart/Mediastinum: Unremarkable. No cardiomegaly. Bones/joints: Unremarkable. XR/XR chest 1V portable [id number] IMPRESSION: 1. Negative for infiltrate. 2. Mild emphysematous changes suspected.
[2024-12-15 17:41] LABS: Alanine Aminotransferase 6 U/L (0-41); Albumin Level 3.8 g/dL (3.5-5.2); Alkaline Phosphatase 67 U/L (40-130); Anion Gap 17.1 (5-19); Aspartate Amino Transferase 16 U/L (0-40); Blood Urea Nitrogen 12 mg/dL (8-23); Calcium 8.6 mg/dL (8.5-10.5); Carbon Dioxide 23 mmol/L (22-29); Chloride 101 mmol/L (98-107); Globulin 2.9 g/dL (1.3-4.6); Glomerular Filtration Rate 50.4 mL/min (90-130); Glucose 84 mg/dL (65-115); Osmolality Calculated 283 mOsm/kg (285-295); Potassium 4.1 mmol/L (3.5-5.1); Sodium 137 mmol/L (136-145); Total Bilirubin 0.5 mg/dL (0.15-1.2); Total Protein 6.7 g/dL (6.6-8.7)
[2024-12-15 18:30] VITALS: BP 130/83; PULSE 78; RESP 15; O2SAT 94
== END 2024-12-15 18:30 | disposition home or self-care (01) ==
PROVIDERS: Emergency Provider Family Medicine; PCP Nurse Practitioner Family
DX: B34.8 Other viral infections of unspecified site (principal); Z11.52 Encounter for screening for COVID-19
CPT/HCPCS: 36415; 71045; 80053; 85025; 87486; 87581; 87633; 99284; J7030

== ENCOUNTER 2025-07-19 13:45 | Emergency (ER) | payer OTHER, SELFPAY ==
[2025-07-19 13:44] VITALS: BP 136/97; PULSE 91; RESP 16; TEMP 36.3; O2SAT 95; BMI 35.4
--- OUTSIDE RECORDS SUMMARY | 2025-07-19 13:50 | XMS_ITS ---
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 Past Treatment and Therapy Plans No past plan information found. Lifetime Dose Tracking * Chemical Lifetime Dose Automatic Entry Manual Entr y Effective Dose 34.3 mSv 34.3 mSv 0 mSv Total DLP 2,730 DLP 2,730 DLP 0 DLP CTDIvol Max 60 mGy 60 mGy 0 mGy CTDIvol Min 55.4 mGy 55.4 mGy 0 mGy
--- OUTSIDE RECORDS SUMMARY | 2025-07-19 13:50 | XMS_ITS | Clinical Summary ---
Author Organization [facility] Address [address] [place] [address] Phone Care Team Providers Care Car Rental Clerk Name Role Phone Alyssia Holman PRIME BROKER Primary Care Prov ider Allergies Active Allergy Reactions Criticality Noted Date Comments Gemfibrozil Other (See Comments) 07/09/2008 Can't remember Lisinopril Cough Low 02/18/2012 Naproxen Hives,Itching,Weakness High 09/11/2013 Rofecoxib Rash Low 10/05/2007 Medications gabapentin (NEURONTIN) 300 mg capsule Take 1 Capsule by mouth 2 times daily. 8 Active finasteride (PROSCAR) 5 mg tablet Take 1 Tablet by mouth daily outside sales engineer . 8 Active morphine (MS CONTIN) 15 mg Controlled Release tablet Take 1 Tablet by mouth 3 times daily. 8 Active docusate sodium (COLACE) 100 mg capsule Take 1 Capsule (100 mg) by mouth 2 times daily While taking pain medicine to reduce constipation risk. 20 Capsule 1 9 Active amLODIPine (NORVASC) 2.5 mg tablet Take 2.5 mg by mouth daily. 9 Active aspirin (ECOTRIN EC) 81 mg Tablet, Delayed Release (E.C.) Take 81 mg by mouth daily. Active calcium carbonate-vitami n D3 (CALTRATE 600 + D) 600 mg(1,500mg) -800 unit Tablet Take 1,500 Tablets by mouth daily. Active metoprolol tartrate (LOPRESSOR) 100 mg tablet Take 100 mg by mouth daily. Active prazosin (MINIPRESS) 1 mg capsule Take 1 mg by mouth daily. Active rosuvastatin (CRESTOR) 5 mg tablet Take 5 mg by mouth daily. 9 Active fluticasone propionate (FLONASE) 50 mcg/spray [place], Suspension nasal inhalerIndicatio ns:Post-nasal drainage,Dysphon ia Administer 2 Sprays in each nostril 2 times daily. 16 Gram 6 9 Active polymyxin B sulf-trimethopri m (POLYTRIM) 10,000 unit- 1 mg/mL solution INSTILL 1 DROP INTO RIGHT EYE EVERY 2 HOURS WHILE AWAKE DIRECTED STARTING AT NOON THE DAY BEFORE SURGERY. INSTILL 1 DROP THE MORNING OF S 9 Active omeprazole (PriLOSEC) 20 mg Capsule, Delayed Release(E.C.) 9 Active DULoxetine (CYMBALTA) 60 mg Capsule, Delayed Release(E.C.) 9 Active cholecalciferol, vitamin D3, 1,000 unit 9 Active ALLOPURINOL ORAL Take 300 mg by mouth daily. Active albuterol (PROVENTIL,RISHABH ANJELICA) 2.5 mg /3 mL (0.083 %) Solution for Nebulization 0 Active NARCAN 4 mg/actuation [place], Non-Aerosol 0 Active SENNA WITH DOCUSATE SODIUM 8.6-50 mg tablet 0 Active albuterol HFA 90 mcg inhaler Take 2 Puffs by inhalation every 6 hours as needed for Shortness of Breath. Active ALLOPURINOL ORAL Take 300 mg by mouth. 9 Active Active Problems Problem Noted Date Diagnosed Date [...] antineoplastic therapy 07/06/2018 Idiopathic progressive polyneuropathy 09/11/2013 Immunizations Immunization Administration Dates Next Due (ADACEL/BOOSTRIX)(10 YR UP) TDAP VACCINE, 0.5ML, IM 03/11/2016,07/21/2007 (PREVNAR 13)(6 WKS UP) PNEUM OCOCCAL CONJUGATE (PCV13) 0.5 ML, IM 03/24/2015 Hepatitis B Vaccine 05/07/1999,01/16/1997,1996 INFLUENZA VACCINE QUADRIVALE NT 6 MOS UP PF IM 05/11/2018,09/07/2017 Influenza Seasonal Unspecifi ed Formulation IM 04/17/2019 Influenza Vaccine Tri Split 4+ Im 09/07/2016 Pneumococcal Polysaccharide Vacc 23-yoly IM SCHIP 03/14/2017 Family History Medical History Relation Name Comments Kidney Disease Daughter 1 Other Daughter 2 Hypertension Father Heart Disease Mother Heart Failure Mother Cancer Paternal Grandmother Arthritis-rheumatoid Sister Relation Name Status Comments Daughter 1 Daughter 2 Father Mother Paternal Grandmother Sister Social History Tobacco Use Types Packs/Day Years Used Date Smoking Tobacco: Former Cigarettes 2 1 - 1987 Smokeless Tobacco: Former Chew Quit: 1987 Alcohol Use Standard Drinks/Week Comments No 0 (1 standard drink = 0.6 oz pur e alcohol) in the past Sex and Gender Information Value Date Recorded Sex Assigned at Not on file 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 Gender Identity Not on file Sexual Orientation Not on file Occupation Industry Job Start Date Job End Date Not on file Not on file Not on file Not on file Last Filed Vital Signs Vital Sign Reading Time Taken Comments Blood Pressure 158/98 01/13/2021 2:52 PM CDT Pulse 68 01/13/2021 2:52 PM CDT Temperature 36.5 C (97.7 F) 10/01/2020 3:39 PM REAL ESTATE BROKER Respiratory Rate 16 12/05/2019 2:29 PM CDT Oxygen Saturation 92% 01/13/2021 2:52 PM CDT Inhaled Oxygen Concentration - - Weight 133.4 kg (294 lb) 01/13/2021 2:52 PM CDT Height 188 cm (6' 2 ) 01/13/2021 2:52 PM CDT Body Mass Index 37.75 01/13/2021 2:52 PM CDT Plan of Treatment Health Maintenance Due Date Last Done Comments COLORECTAL SCREENING 02/21/2001 Colorectal Cancer Screening 02/21/2001 FIT-DNA Q 3 years 02/21/2001 FIT/FOBT Q 1 year 02/21/2001 Flex Sig/CT Colonography Q 5 years 02/21/2001 RSV VACCINE (60+ or ) (1 - Risk 50-74 years 1-dose series) 02/21/2006 ZOSTER VACCINE (1 of 2) 02/21/2006 PNEUMOCOCCAL VACCINE 50+ YEA RS (3 of 3 - PCV20 or PCV21) 03/14/2022 03/14/2017, 03/24/2015 INFLUENZA VACCINE (#1) 2025 , 04/17/2019, 05/11/2018, Additional history exists DTAP/TDAP/TD VACCINES (3 - T d or Tdap) 03/11/2026 03/11/2016, 07/21/2007 Medical Devices Implanted Type Area Certified Medical Biller Device Identifier Shelf Expiration Date Model / Serial / Lot Hemostatic Abs Surg Powder 3013sp - [id number] Implanted:Qty: 1 on 08/29/2018 by Mehul Painter MD at [facility] Hemostatic N/A: Throat [employer] 11/29/2019 [id number] / / [id number] Explanted Type Area Certified Medical Biller Device Identifier Shelf Expiration Date Model / Serial / Lot Oil Slc 8.5ml [id number] - [id number] Implanted:Qty: 1 on 07/18/2019 by Trenton Garcia MD at [facility] Explanted:Qty: 1 on 12/05/2019 by Trenton Garcia MD at [facility] Eye Right: Eye [facility] [employer] 07/31/2020 [id number] / [id number] / [id number] Description:GTIN: [id number] Insurance MEDICARE PART [place] [address] [place] [address] [address] [place] [address] OR CCN [employer] Advance Directives For more information, please contact: [phone] * Full Code (Latest Code Status on File) Date Activated Date Inactivated Comments 12/05/2019 12:33 PM 12/05/2019 5:00 PM * Full Code Date Activated Date Inactivated Comments 07/18/2019 7:17 AM 07/18/2019 11:26 AM * Full Code Date Activated Date Inactivated Comments 08/29/2018 9:28 AM 08/30/2018 1:20 PM * Full Code Date Activated Date Inactivated Comments 08/29/2018 7:15 AM 08/29/2018 9:28 AM Care Teams Car Rental Clerk Relationship Specialty Start Date End Date Alyssia Holman NP [address] [place] [address] [place] [phone] PCP - General NURSE PRACTITIONER 08/28/18
--- OUTSIDE RECORDS SUMMARY | 2025-07-19 13:50 | XMS_ITS | Encounter Summary ---
Author Organization [facility] Address [address] [place] [address] Care Team Providers Care Railway Track Plant Operator Name Role Phone Alyssia Holman NP Primary Care Prov ider Encounter Details Date Type Department Care Team (Latest Contact Info) Description 06/14/2002 Outpatient Historical [address] [phone] Michelle Levy MD [address] [place] [address], [id number] OBSERVATION-ACCIDENT NEC (Primary Dx); Sprain of neck; SPASM OF MUSCLE Social History Tobacco Use Types Packs/Day Years Used Date Smoking Tobacco: Never Assessed Sex and Gender Information Value Date Recorded Sex Assigned at Not on file 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 Gender Identity Not on file Sexual Orientation Not on file documented as of this encounter Plan of Treatment Not on file documented as of this encounter Visit Diagnoses Diagnosis Observation following other accident- Primary Sprain of neck Neck sprain and strain Spasm of muscle documented in this encounter Additional Health Concerns Infection Onset Date Last Indicated Resolved Time R/O COVID-19 12/03/2019 12/03/2019 12/04/2019 11:4 9 AM CDT documented as of this encounter Care Teams Railway Track Plant Operator Relationship Specialty Start Date End Date Alyssia Holman NP [address] [place] [address] [place] [address] PCP - General NURSE PRACTITIONER 08/28/18 documented as of this encounter
--- OUTSIDE RECORDS SUMMARY | 2025-07-19 13:50 | XMS_ITS ---
Author Organization [facility] Address [address] [place] [address] Phone Care Team Providers Care Director Of Infection Control Name Role Phone Alyssia Holman MANAGED SERVICES CONSULTANT Primary Care Prov ider Active Problems Problem Noted Date Diagnosed Date Solitary kidney, acquired 01/29/2025 Obstruction of right uretero pelvic junction (UPJ) due to stone 01/28/2025 Acute kidney injury superimp osed on stage 3b chronic kidney disease 01/28/2025 Calculus of gallbladder with out cholecystitis without obstruction 01/28/2025 Shortness of breath 10/12/2024 Palpitations 10/12/2024 Hypertension, essential 10/12/2024 Mixed hyperlipidemia 10/12/2024 Pre-syncope 10/12/2024 Abnormal stress test 10/12/2024 Preoperative general physical examination 2024 Primary osteoarthritis of right shoulder 025 Severe obesity (BMI 35.0-39.9) with comorbidity 09/24/2024 Obstructive sleep apnea 09/24/2024 GERD without esophagitis 09/24/2024 Dyslipidemia 09/24/2024 Primary hypertension 09/24/2024 Stage 3a chronic kidney disease 09/24/2024 History of tobacco use 09/24/2024 Gout 09/24/2024 COPD (chronic obstructive pulmonary disease) Benign prostatic hyperplasia with lower urinary tract symptoms 09/24/2024 Chest pain 09/24/2024 Abnormal EKG 09/24/2024 Combined form of age-related cataract, left eye 09/21/2023 Pseudophakia, right eye 09/21/2023 Hx of retinal detachment 09/21/2023 History of repair of retinal tear by laser photo coagulation 06/30/2020 Epiretinal membrane (ERM) of right eye 0 Hx of TORS Lingual Tonsillectomy 08/201802/13/20 20 Retinal tear, left 07/16/2019 Macula-off rhegmatogenous retinal detachment, ri ght 07/16/2019 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 The patient has had the cystic appearing lesions biopsied and they showed organized lymphoid tissue consistent with tonsillar tissue. It is possible that these made it difficult for him to be intubated and there was some laryngeal trauma at the time of surgery that has contributed to his dysphonia and glubus sensation. Mucocele of tongue 02/07/2018 Overview (02/13/2021): The large cystic lesion on his right BOT appears to be a mucocele. It is possible that this plays a role in his globus sensation. It is possible that this made it difficult for him to be intubated and there was some laryngeal trauma at the time of surgery that has contributed to his dysphonia and glubus sensation. If he gets no benefit from vocal therapy for MTD we may consider resection of this lesion in the OR. Follicular non-Hodgkin's lymphoma 11/24/2015 Idiopathic progressive polyneuropathy 09/11/2013 Current Treatment and Therapy Plans No current plan information found. Past Treatment and Therapy Plans No past plan information found. 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 He would likely benefit from 4-6 sessions of semi-occluded vocal tract exercises. We will work on getting him scheduled with an TONGUE CARRIER in the [place] area that will be closer and more convenient for him. If this does not give him benefit, we will consider surgical interventions for his BOT lesions.
--- OUTSIDE RECORDS SUMMARY | 2025-07-19 13:50 | XMS_ITS | Encounter Summary ---
Author Organization [facility] Address [address] [place] [address] Care Team Providers Care Clinical Dietetic Technician Name Role Phone Alyssia Holman NP Primary Care Prov ider Encounter Details Date Type Department Care Team (Latest Contact Info) Description 03/14/2009 Outpatient Historical [facility] [address] 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 Gender Identity Not on file Sexual Orientation Not on file documented as of this encounter Plan of Treatment Not on file documented as of this encounter Visit Diagnoses Diagnosis Stiffness of joint, not elsewhere classified, shoulder region- Primary Stiffness of joint, not elsewhere classified, shoulder region documented in this encounter Additional Health Concerns Infection Onset Date Last Indicated Resolved Time R/O COVID-19 12/03/2019 12/03/2019 12/04/2019 11:4 9 AM CDT documented as of this encounter Care Teams Clinical Dietetic Technician Relationship Specialty Start Date End Date Alyssia Holman NP [address] [place] [address] [place] [phone] PCP - General NURSE PRACTITIONER 08/28/18 documented as of this encounter
--- OUTSIDE RECORDS SUMMARY | 2025-07-19 13:51 | XMS_ITS | Clinical Summary ---
Author Organization [facility] Address [address] [facility] [address] [place] [address] Phone Care Team Providers Care Fire Range Technician Name Role Phone Alyssia Holman BROADCAST SYSTEMS ENGINEER Primary Care Prov ider Allergies Active Allergy Reactions Criticality Noted Date Comments Gemfibrozil Other (See Comments) 07/09/2008 Can't remember Lisinopril Cough Low 02/18/2012 Naproxen Hives,Itching,Weakne ss,Rash,Ot her (See Comments) High 09/11/2013 Rofecoxib Rash,Nausea and Vomiting Medium 10/05/2007 Medications finasteride (PROSCAR) 5 mg tablet Take 1 Tablet by mouth daily 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 8 Active morphine (MS CONTIN) 15 mg Controlled Release tablet Take 1 Tablet by mouth 3 times daily. 8 Active albuterol (PROVENTIL,RISHABH ANJELICA) 2.5 mg /3 mL (0.083 %) Solution for Nebulization 0 Active naloxone (Narcan) 4 mg/spray [place], Non-Aerosol 0 Active rosuvastatin (CRESTOR) 5 mg tablet Take 5 mg by mouth daily. 9 Active prazosin 2 mg capsule (MINIPRESS) Take 2 mg by mouth daily. 9 Active aspirin (ECOTRIN EC) 81 mg Tablet, Delayed Release (E.C.) Take 81 mg by mouth daily. 9 Active omeprazole (PriLOSEC) 20 mg Capsule, Delayed Release(E.C.) Take 40 mg by mouth 2 times daily. 9 Active albuterol HFA 90 mcg inhaler Take 2 Puffs by inhalation every 6 hours as needed for Shortness of Breath. 0 Active ALLOPURINOL ORAL Take 300 mg by mouth daily. 9 Active gabapentin (NEURONTIN) 800 mg tablet Take 800 mg by mouth 3 times daily. 4 Active acetaminophen (TYLENOL) 500 mg tablet Take 500 mg by mouth every 6 hours as needed. Active metoprolol succinate (TOPROL XL) 25 mg Extended Release 24 hour tablet Take 1 Tablet (25 mg) by mouth daily. 30 Tablet 6 5 Active sacubitriL-valsa rtan (ENTRESTO) 24-26 mg Tablet Take 1 Tablet by mouth 2 times daily. 200 Tablet 3 5 Active doxycycline hyclate (VIBRAMYCIN) 100 mg capsuleIndicatio ns:COPD with exacerbation (CMS/HCC) Take 1 Capsule (100 mg) by mouth 2 times daily for 7 days. 14 Capsule 5 07/17/20 25 Hospital, Clinic, or Other Facility Administered Medication Ordered Dose Route Frequency Start Date End Date Status dexAMETHasone (DECADRON) injection 4 mgIndications:COPD with exacerbation (CMS/HCC) 4 mg IM ONE TIME ONLY 07/10/2025 07/10/2025 Ended methylPREDNISolone acetate (DEPO-Medrol) 40 mg/mL injection 40 mgIndications:COPD with exacerbation (CMS/HCC) 40 mg IM ONE TIME ONLY 07/10/2025 07/10/2025 Discontinue d methylPREDNISolone acetate (DEPO-Medrol) 40 mg/mL injection 40 mgIndications:COPD with exacerbation (CMS/HCC) 40 mg IM ONE TIME ONLY 07/10/2025 07/10/2025 Discontinue d methylPREDNISolone acetate (DEPO-Medrol) injection 40 mgIndications:COPD with exacerbation (CMS/HCC) 40 mg IM ONE TIME ONLY 07/10/2025 07/10/2025 Ended Active Problems Problem Noted Date Diagnosed Date [...] non-Hodgkin's lymphoma 11/24/2015 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 He would likely benefit from 4-6 sessions of semi-occluded vocal tract exercises. We will work on getting him scheduled with an CONTINUOUS IMPROVEMENT ANALYST in the [place] area that will be closer and more convenient for him. If this does not give him benefit, we will consider surgical interventions for his BOT lesions. Encounters Date Type Department Care Team Description 07/10/2025 11:20 AM GRAPHIC USER INTERFACE DESIGNER Office Visit [address] [phone] Kavita Lea FNP COPD with exacerbation (CMS/HCC) (Primary Dx) 06/06/2025 2:00 PM GRAPHIC USER INTERFACE DESIGNER Office Visit [facility] [address] [place] [phone] Germán Oneil ARNP Heart failure with mid-range ejection fraction (HFmEF) (CMS/HCC) (Primary Dx); Other forms of angina pectoris 06/05/2025 External Device Data STL ABSTRACTION Provider, Abstract 05/15/2025 Abstract [facility] [address] [place] [phone] Sushil Olson MD 05/02/2025 Telephone [facility] [address] [place] [phone] Sushil Olson MD Information 04/30/2025 External Device Data STL ABSTRACTION Provider, Abstract 04/30/2025 External Device Data STL ABSTRACTION Provider, Abstract from Last 3 Months Immunizations Immunization Administration Dates Next Due (ADACEL/BOOSTRIX)(10 YR UP) TDAP VACCINE, 0.5ML, IM 03/11/2016,07/21/2007 (AREXVY)(60 YR UP) RSV, JEFF MBINANT, PROTEIN SUBUNIT RSVPREF, ADJUVANT RECONSTITUTED, 0.5 ML, PF 10/14/2023 (PNEUMOVAX 23)(50 YRS UP) PN EUMOCOCCAL POLYSACCHARIDE (PPV23) 0.5 ML, IM 08/23/2022 (PREVNAR 13)(6 WKS UP) PNEUM OCOCCAL CONJUGATE (PCV13) 0.5 ML, IM 03/24/2015 Hepatitis B Vaccine 05/07/1999,01/16/1997,1996 Hepatitis B Vaccine, Unspeci fied Formulation 05/07/1999,01/16/1997,12/12/1996 INFLUENZA VACCINE QUADRIVALE NT 6 MOS UP PF IM 05/10/2019,05/11/2018,09/07/2017 Influenza Seasonal Unspecifi ed Formulation IM 04/17/2019 Influenza Vaccine Tri Split 4+ Im 09/07/2016 Influenza, Unspecified Formulation 05/01,04/24/2013,06/15/2012,06/03,07/12/2006 Pneumococcal Polysaccharide Vacc 23-yoly IM SCHIP 03/14/2017 Pneumococcal vaccine, unspec ified formulation 11/02/2011 Td(adult) Unspecified Formulation 06/01/2007 Family History Medical History Relation Name Comments Other Daughter 1 Kidney Disease Daughter 2 Hypertension Father Heart Disease Mother 62 Heart Failure Mother Cancer Paternal Grandmother Arthritis-rheumatoid Sister Relation Name Status Comments Daughter 1 Daughter 2 Father Mother Paternal Grandmother Sister Social History Tobacco Use Types Packs/Day Years Used Date Smoking Tobacco: Former Cigarettes 2.5 38 S tarted: 08/01/1987 Smokeless Tobacco: Former Chew Quit: 08/01/1987 Tobacco Cessation:Counseling Given: No Alcohol Use Standard Drinks/Week Comments No 0 (1 standard drink = 0.6 oz pur e alcohol) Feeling Safe Answer Date Recorded Are you in a relationship wi th someone who hurts you emotionally and/or physically? No 02/12/2025 Food Insecurity Answer Date Recorded Patient needs follow up regardin 01/28/2025 Transportation Needs Answer Date Record ed Patient needs follow up regardin 01/28/2025 Utility Needs Answer Date Recorded Patient needs follow up regardin 01/28/2025 Sex and Gender Information Value Date Recorded Sex Assigned at Not on file Legal Sex Male 4:30 AM GRAPHIC USER INTERFACE DESIGNER Gender Identity Not on file Sexual Orientation Not on file Last Filed Vital Signs Vital Sign Reading Time Taken Comments Blood Pressure 130/88 07/10/2025 11:07 AM GRAPHIC USER INTERFACE DESIGNER Pulse 74 07/10/2025 11:07 AM GRAPHIC USER INTERFACE DESIGNER Temperature 36.6 C (97.9 F) 07/10/2025 11:07 AM GRAPHIC USER INTERFACE DESIGNER Respiratory Rate 18 07/10/2025 11:0 7 AM GRAPHIC USER INTERFACE DESIGNER Oxygen Saturation 95% 07/10/2025 11: 07 AM GRAPHIC USER INTERFACE DESIGNER Inhaled Oxygen Concentration - - Weight 130.8 kg (288 lb 6.4 oz) 025 11:07 AM GRAPHIC USER INTERFACE DESIGNER Height 188 cm (6' 2 ) 07/10/2025 11:07 AM GRAPHIC USER INTERFACE DESIGNER Body Mass Index 37.03 07/10/2025 11:07 AM GRAPHIC USER INTERFACE DESIGNER Plan of Treatment Upcoming Encounters Date Type Department Care Team (Late st Contact Info) Description 10/01/2025 12:15 PM GRAPHIC USER INTERFACE DESIGNER Appointment [facility] [address] [phone] 10/08/2025 1:00 PM CDT Office Visit [facility] [place] [address] [phone] Angie Arredondo FNP [address] [phone] 02/20/2026 9:00 AM CDT Office Visit [facility] [address] [place] [phone] Linda Singh, CRIS [address] [facility] [address] [place] [phone] 06/17/2026 1:00 PM GRAPHIC USER INTERFACE DESIGNER Office Visit [facility] [address] [place] [phone] Sushil Olson MD [address] [facility] [address] [place] [phone] Germán Oneil ARNP [address] [place] [phone] Health Maintenance Due Date Last Done Comments Pre-Diabetes and Diabetes Screening 1955 FIT-DNA Q 3 years 02/21/2001 FIT/FOBT Q 1 year 02/21/2001 Flex Sig/CT Colonography Q 5 years 02/21/2001 ZOSTER VACCINE (1 of 2) 02/21/2006 Abdominal Aortic Aneurysm (A AA) Screening 02/21/2021 INFLUENZA VACCINE (#1) 2025 , 05/10/2019, 04/17/2019, Additional history exists DTAP/TDAP/TD VACCINES (3 - T d or Tdap) 03/11/2026 03/11/2016, 07/21/2007, 06/01/2007 COLORECTAL SCREENING 02/19/2031 02/20/2024, 02/20/20 24 Colorectal Cancer Screening 02/19/2031 PNEUMOCOCCAL VACCINE 50+ YEARS Completed 0 08/23/2022, 03/14/2017, 03/24/2015, Additional history exists RSV VACCINE (60+ or ) Completed 10/14/2023 Medical Devices Implanted Type Area Calculator Operator Device Identifier Shelf Expiration Date Model / Serial / Lot Hemostatic Abs Surg Powder 3013sp - [id number] Implanted:Qty : 1 on 08/29/2018 by Mehul Painter MD Hemostatic N/A: Throat [employer] 11/29/2019 [id number] / / [id number] Capsule Hopper Ph Testing Fgs-0635 - [id number] Implanted:Qty : 1 on 02/20/2024 by Ronal Nam MD at [facility] Other N/A: Esophagus [employer] COVID[employer]EN gm mobile. GIVEN [id number] 04/01/2025 FGS-0635 / / [id number] Description:PLACED AT 34CM Stent Contour [id number] - [id number] Implanted:Qty : 1 on 02/12/2025 by Rony García MD at [facility] Stent Right: Ureter [employer]- UROLOGY/PATIENT TRANSITION SPECIALIST [id number] 12/04/2027 [id number] / / [id number] Description:No string [employer] Neuro Stimulator [employer] Description:Dr. Alyssia hoover [id number] Lead [id number]-2218-50 Implanted: (Quantity not on file) [employer] SC-2218- 50 / / Description:pt has two of th segun leads head only mri's Lead [id number]-2366-50 Implanted: (Quantity not on file) [employer] SC-2366- 50 / / Description:pt has two of th segun leads. head only mri's 04/15/2014 [place] Leads [id number] Implanted: (Quantity not on file) [employer] TRAIL LEADS SC-2366- 50E / / Description:pt may have two of these implanted. per [employer]. If pt does that makes him ineligible for mri's. If they are removed pt would be a head only candiate if he meets all of the requirements. 03-12-2021 Explanted Type Area Calculator Operator Device Identifier Shelf Expiration Date Model / Serial / Lot Oil Slc 8.5ml [id number] - [id number] Implanted:Qty: 1 on 07/18/2019 by Trenton Garcia MD Explanted:Qty: 1 on 12/05/2019 by Trenton Garcia MD Eye Right: Eye [facility] 07/31/2020 [id number] / [id number] / [id number] Description:GTIN: [id number] Stent Contour [id number] - [id number] Implanted:Qty: 1 on 01/28/2025 by Rony García MD at [facility] Explanted:Qty: 1 on 02/12/2025 by Rony García MD at [facility] Stent Right: Ureter [employer]- UROLOGY/PATIENT TRANSITION SPECIALIST [id number] 11/26/2027 [id number] / / [id number] Procedures Procedure Name Priority Date/Time Associated Diagnosis Comments COLONOSCOPY REPORT 02/20/2024 2: 40 PM CDT from Last 3 Months or Most Recently Relevant to Health Maintenance Results * COLONOSCOPY REPORT (02/20/2024 2:40 PM CDT) Narrative Procedure Note Ronal Nam MD - 02/20/2024 2:40 PM CDT [facility] GI Patient Name: Bubba Hensley Procedure Date: 02/20/2024 Date of : 1955 Admit Type: Outpatient Age: 68 Attending MD: Ronal Nam , , Procedure: Colonoscopy Indications: High risk colon cancer surveillance: Personal history of non-advanced adenoma Providers: Ronal Nam Referring MD: ARMANDO Auguste Medicines: Monitored Anesthesia Care Complications: No immediate complications. Procedure: Pre-Anesthesia Assessment: - The risks and benefits of the procedure and the sedation options and risks were discussed with the patient. All questions were answered and informed consent was obtained. - ASA Grade Assessment: II - A patient with mild systemic disease. After I obtained informed consent, the scope was passed under direct vision. Throughout the procedure, the patient's blood pressure, pulse, and oxygen saturations were monitored continuously. The Colonoscope was introduced through the anus and advanced to the cecum, identified by appendiceal orifice and ileocecal valve. The colonoscopy was performed without difficulty. The patient tolerated the procedure well. The quality of the bowel preparation was adequate. Estimated Blood Loss: Estimated blood loss was minimal. Findings: The perianal and digital rectal examinations were normal. A 4 mm polyp was found in the mid ascending colon. The polyp was sessile. The polyp was removed with a cold snare. Resection and retrieval were complete. A 4 mm polyp was found in the distal transverse colon. The polyp was sessile. The polyp was removed with a cold snare. Resection and retrieval were complete. The exam was otherwise without abnormality on direct and retroflexion views. Impression: - One 4 mm polyp in the mid ascending colon, removed with a cold snare. Resected and retrieved. - One 4 mm polyp in the distal transverse colon, removed with a cold snare. Resected and retrieved. - The examination was otherwise normal on direct and retroflexion views. Recommendation: - Await pathology results. Ronal Nam, 02/20/2024 2:40:46 PM Number of Addenda: 0 Note Initiated On: 02/20/2024 2:05 PM Scope Withdrawal Time 0 hours 9 minutes 5 seconds Scope In: 2:23:09 PM Scope Out: 2:36:55 PM [address] [place], [place] Ronal Nam MD GI PROCEDURE ORDERABLES Final Result from Last 3 Months or Most Recently Relevant to Health Maintenance Insurance MEDICARE PART A AND B [employer] [facility] [employer] [facility] [employer] MEDICARE PART A AND B FOR LIFE * Guarantor: [facility] (C) Account Type Relation to Patient Date of Phone B[facility] Other DEFAULT ADDRESS [address] [employer] * Guarantor: [facility] [employer] Account Type Relation to Patient Date of Phone Billing Address Corporate Other DEFAULT ADDRESS [address] [employer] Advance Directives For more information, please contact: [phone] * Full Code (Latest Code Status on File) Date Activated Date Inactivated Comments 02/12/2025 11:06 AM 02/12/2025 5:23 PM * Full Code Date Activated Date Inactivated Comments 01/28/2025 2:40 PM 01/29/2025 1:29 PM * Full Code Date Activated Date Inactivated Comments 10/17/2024 8:35 AM 10/17/2024 1:19 PM * Full Code Date Activated Date Inactivated Comments 10/17/2024 6:30 AM 10/17/2024 8:35 AM * Full Code Date Activated Date Inactivated Comments 02/20/2024 1:28 PM 02/20/2024 5:14 PM Care Teams Fire Range Technician Relationship Specialty Start Date End Date Alyssia Holman NP [address] [place] [address] [place] [phone] PCP - General NURSE PRACTITIONER 08/28/18
--- NOTE | 2025-07-19 14:06 | XR_ITS ---
WS: [id number] Portable AP upright chest, 07/19/2025 Clinical Data: weakness Comparison: Portable chest, 12/15/2024 Findings: No nodules, masses or effusions are seen. The heart is normal. The pulmonary vascularity is not increased. No pneumonia or pneumothorax is seen. The aortic arch and descending thoracic aorta show tortuosity. There are monitor leads on the chest wall. XR/XR chest 1V portable [id number] Impression: Atherosclerosis.
--- NOTE | 2025-07-19 14:06 | CTR_ITS ---
PROCEDURE INFORMATION: Exam: CT Abdomen And Pelvis With Contrast Exam date and time: 07/19/2025 4:03 PM Age: 70 years old Clinical indication: Nausea and vomiting; Abdominal pain; Prior surgery; Surgery date: 6+ months; Surgery type: Hip stimulator; Additional info: Abdominal/back pain; N/v/d TECHNIQUE: Imaging protocol: Computed tomography of the abdomen and pelvis with contrast. Total images: 291 Radiation optimization: All CT scans at this facility use at least one of these dose optimization techniques: automated exposure control; mA and/or kV adjustment per patient size (includes targeted exams where dose is matched to clinical indication); or iterative reconstruction. Contrast material: OMNI 350; Contrast volume: 100 ml; Contrast route: INTRAVENOUS (IV); COMPARISON: 1. CT abdomen pelvis wo con [id number] 11/07/2023 10:58 PM 2. CR XR chest 1V portable [id number] 07/19/2025 2:55 PM RADIATION DOSE METRICS: Total DLP (mGy-cm): 1128.53 FINDINGS: Limitations: Image quality limited by metallic beam hardening streak artifact. Tubes, catheters and devices: Spinal stimulator present. Lungs: Insofar as lung bases are included within the field of view, no acute pathologic pulmonary process appreciated. Liver: Liver diffusely increased fat content/fatty infiltration. No focal hepatic lesions identified; subtle or isoattenuating/isointense lesions may be obscured. Gallbladder and biliary ducts: Gallbladder faintly radiodense sludge and multiple small hyperdense calculi (gravel), without wall thickening or pericholecystic inflammation. Pancreas: Pancreas of normal thickness and contour. Spleen: Spleen normal in size and contour. No focal splenic mass identified. Incidental splenule formation. Adrenal glands: Left adrenal gland stable enlargement and multi-lobulation; likely benign adenomatous hyperplasia. Kidneys and ureters: Prior left nephrectomy. Right kidney of normal-size and contour without perinephric induration with no right renal mass, stone or hydronephrosis. Previously observed right nonobstructing renal calculus is no longer present. Stomach and bowel: There is a small duodenal diverticulum. Colonic few scattered diverticuli without imaging evidence of acute diverticulitis. No pathologic bowel distension or bowel wall thickening. Appendix: Appendix is not confidently visualized; however, no regional inflammatory changes are seen in the expected location of the appendix. Intraperitoneal space: No pathologic peritoneal fluid. No free peritoneal air. Vasculature: No abdominal aortic aneurysm or hemodynamically significant stenosis. 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 Mild atherosclerotic arterial calcification throughout. No hemodynamically significant stenosis of the celiac trunk, SMA or right renal artery origin. Lymph nodes: No lymphadenopathy. Urinary bladder: Bladder adequately distended and no abnormality identified to the extent bladder is partially visualized. Reproductive: Prostate gland and seminal vesicles are normal. Bones/joints: Right total hip arthroplasty without metallic prosthesis failure, pathologic periprosthetic radiolucency, loosening or periprosthetic fracture. Severe chronic generalized degenerative changes of the vertebral column, including multilevel osteophytes, degenerative disc height loss, vacuum disc phenomenon, and facet arthrosis, consistent with patient age. Left hip mild degenerative osteoarthritis. Pubic symphysis mild degenerative changes (osteitis pubis). Mild degenerative changes of the sacroiliac joints. Widespread proliferative bony enthesopathy, features most compatible with diffuse idiopathic skeletal hyperostosis (DISH). Sacrum left S2 side 2 cm diameter bony sclerotic focus which may represent a bone island. No intrinsic osseous abnormality identified. 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 L5-S1 grade 1 spondylolisthesis. Qualitative demineralization of bones (osteopenia) limiting evaluation for nondisplaced fractures. Soft tissues: Soft tissues are normal as visualized, demonstrating no masses or swelling/induration. Small volume inguinal canal preperitoneal fat without bowel or peritoneal sac herniation. CT/CT abdomen pelvis w con* [id number] IMPRESSION: 1. Colonic few scattered diverticuli, diverticulosis without acute diverticulitis. 2. Gallbladder faintly radiodense gallstones/sludge (gravel) noted once again, without manifestations of acute cholecystitis. 3. Previously observed right nonobstructing renal calculus is no longer present compared with CT 11/07/2023. 4. Stable left adrenal gland stable enlargement and multi-lobulation; likely benign adenomatous hyperplasia. 5. Stable manifestations of prior left nephrectomy. 6. 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 7. Advanced age-appropriate degenerative spinal changes;other chronic/non-acute findings as described above. Generalized enthesopathy likely DISH. COMMENTS: 1. Qualitative demineralization of bones (osteopenia) limiting evaluation for nondisplaced fractures. 2. Evaluation of pelvic anatomy and proximal femur is limited by beam-hardening and streak artifact due to hip arthroplasty hardware, which may obscure stephenie-prosthetic bone, acetabular margins, and adjacent soft-tissues.
--- NOTE | 2025-07-19 14:06 | W.ED.NAVMDI ---
HPI - Nausea/Vomiting/Diarrhea General: Chief complaint: Nausea/Vomiting/Diarrhea Stated complaint: N/V/D Time Seen by Provider: 07/19/25 13:55 Source: patient Mode of arrival: EMS Limitations: no limitations History of Present Illness: Patient is a 70-year-old male who presents to ED today with a complaint of nausea, vomiting, diarrhea, abdominal pain. Patient states yesterday evening he began developing diarrhea which has since progressed to vomiting and abdominal/back pain. He denies hematemesis or blood in his stool. He has not noted any black or tarry bowel movements. He feels like his abdominal pain is diffuse. He feels like he has no energy and is generally weak. He reportedly could not get up today thus calling EMS. Patient does not complain of chest pain, shortness of breath, difficulty breathing. No fevers. MD elicited complaint: nausea, vomiting, diarrhea and abdominal pain Onset (ago): day(s) (yesterday) Associated nausea: Yes Associated abdominal pain: Yes Location of pain: Diffuse Radiation: diffuse Pain consistency: constant Severity: moderate Quality: cramping and aching Exacerbating factors: eating Relieving factors: none Associated symtoms: Reports nausea; Denies chest pain, dysuria or headache(s) Related Data Previous Rx's ?Medication ?Instructions ?Recorded dicyclomine 10 mg capsule 10 mg PO TID #14 caps 11/08/23 ondansetron 4 mg disintegrating 4 mg PO Q8H PRN nausea and 07/19/25 tablet vomiting #14 tabs Allergies Allergy/AdvReac Type Severity Reaction Status Date / Time naproxen (From Naprosyn) Allergy Unknown Verified 07/19/25 13:45 rofecoxib (From Vioxx) Allergy Unknown Verified 07/19/25 13:45 Review of Systems Const: Reports: other (generalized weakness); Denies: fever(s), chills or body aches Card: Denies: chest pain Resp: Denies: dyspnea GI: Reports: abdominal pain, nausea, vomiting and diarrhea; Denies: hematemesis, hematochezia or melena : Denies: flank pain, difficulty urinating, dysuria, urinary frequency, urinary urgency or urinary hesitancy Musc: Reports: back pain; Denies: neck pain, extremity pain, extremity swelling, joint pain, joint swelling or joint redness Skin/Breast: Denies: rash Neuro: Denies: headache(s), numbness in extremities, weakness in extremities or sensory changes PFSH ED PFSH: Medical History No pertinent family history Carpal tunnel syndrome of left wrist Surgical History History of carpal tunnel surgery Physical Exam Const: COMMON NORMALS: patient oriented x3, no limitations, alert and well nourished GENERAL APPEARANCE: cooperative NUTRITIONAL APPEARANCE: obese ORIENTATION/CONSCIOUSNESS: Yes awake, Yes oriented to person, Yes oriented to place and Yes oriented to time OTHER: looks generally weak and ill HENMT: COMMON NORMALS: normocephalic and atraumatic HEAD & SCALP: normal to inspection, normocephalic and atraumatic FACE & SINUS: normal facial exam Eye: COMMON NORMALS: no scleral icterus GENERAL EYE: appearance normal, both eyes and all related structures Neck/C-Spine: GENERAL: Yes normal visual inspection Resp: COMMON NORMALS: normal respiratory effort and clear to auscultation bilaterally AUSCULTATION: clear to auscultation bilaterally Cardio: COMMON NORMALS: regular rate and regular rhythm RATE: regular rate RHYTHM: regular rhythm GI: COMMON NORMALS: Normal to inspection, nondistended, normoactive bowel sounds present, Soft to palpation, No hepatosplenomegaly present and no masses INSPECTION: Yes normal to inspection AUSCULTATION: Yes normoactive bowel sounds PALPATION: Yes Soft to palpation, Yes Tenderness to palpation present (GI) (diffusely), No Guarding due to palpation present (GI), No Rigid due to palpation and Yes No hepatosplenomegaly present : COMMON NORMALS: Yes no CVA tenderness BLADDER/KIDNEY EXAM: Yes no CVA tenderness Back/Pelvis: COMMON NORMALS: no CVA tenderness, thoracic and lumbar spine normal to inspection and no thoracic nor lumbar tenderness Extremity: COMMON NORMALS: capillary refill normal, no clubbing, cyanosis or edema, no calf tenderness and no pedal edema GENERAL: Yes normal exam except as noted Neuro: ROMAN COMA SCALE: document [facility] findings [place] coma scale eye opening: Spontaneous Roman coma scale verbal response: Orientated Roman coma scale motor response: Obey commands [place] coma scale total score: 15 COMMON NORMALS: patient oriented x3, moves all extremities, no focal motor deficits and no sensory deficits noted SENSORIUM/ORIENTATION: Yes alert, Yes oriented to person, Yes oriented to place and Yes oriented to time Skin: COMMON NORMALS: no rashes or lesions noted GENERAL SKIN EXAM: no rashes or lesions noted Course Vital Signs: Vital signs: Vital Signs Temperature 97.3 F L 07/19/25 13:44 Pulse Rate 96 07/19/25 18:21 Respiratory Rate 16 07/19/25 18:21 Blood Pressure 115/81 07/19/25 18:21 Pulse Oximetry 92 07/19/25 18:21 Oxygen Delivery Me thod Room Air 07/19/25 15:34 MDM - Nausea/Vomiting/Diarrhea Medical Decision Making Patient is a nice 70-year-old male here with nausea, vomiting, diarrhea starting yesterday evening and overall feeling weak. He thinks that he possibly caught something from the [facility] as he states he went to 3 nursing homes the day before. He arrives with stable vital signs. Blood work showing a normal white count. No significant electrolyte derangements. He does have a small bump to his creatinine at 1.7 but this is close to previous values. UA clear. CT scan with several incidental findings but nothing acute/emergent/surgical. Patient does feel significantly better after IV Zofran and fluids. Ambulated him here in the emergency department and he did well with this. Patient will be allowed discharged with strict return precautions and plan otherwise to follow up with PCP early next week for re-evaluation. Differential Diagnosis Likely traveler's diarrhea, food poisoning, gastroenteritis, clostridium difficile infection, drug-induced nausea and vomiting and dehydration Medical Records I reviewed the patient's medical records. Lab Data I reviewed the patient's lab results. 07/19/25 14:20 07/19/25 14:20 Radiology Impressions Abdomen/Pelvis CT 07/19/25 14:06 IMPRESSION: 1. Colonic few scattered diverticuli, diverticulosis without acute diverticulitis. 2. Gallbladder faintly radiodense gallstones/sludge (gravel) noted once again, without manifestations of acute cholecystitis. 3. Previously observed right nonobstructing renal calculus is no longer present compared with CT 11/07/2023. 4. Stable left adrenal gland stable enlargement and multi-lobulation; likely benign adenomatous hyperplasia. 5. Stable manifestations of prior left nephrectomy. 6. 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 7. Advanced age-appropriate degenerative spinal changes;other chronic/non-acute findings as described above. Generalized enthesopathy likely DISH. COMMENTS: 1. Qualitative demineralization of bones (osteopenia) limiting evaluation for nondisplaced fractures. 2. Evaluation of pelvic anatomy and proximal femur is limited by beam-hardening and streak artifact due to hip arthroplasty hardware, which may obscure stephenie-prosthetic bone, acetabular margins, and adjacent soft-tissues. Chest X-Ray 07/19/25 14:06 Impression: Atherosclerosis. Laboratory Results WBC 10.86 10^3/uL (3.29-11.43) 07/19/25 14:20 RBC 5.40 10^6/uL (3.85-5.65) 07/19/25 14:20 Hgb 15.40 g/dL (11.27-16.99) 07/19/25 14:20 Hct 46.6 % (37-53) 07/19/25 14:20 MCV 86.3 fl (82-101) 07/19/25 14:20 MCH 28.5 pg (27-33) 07/19/25 14:20 MCHC 33.0 g/dL (30-55) 07/19/25 14:20 RDW 13.7 % (12.1-15.1) 07/19/25 14:20 Plt Count 130 10^3/cmm (157-399) L 07/19/25 14:20 MPV 11.6 fL (7.4-10.4) H 07/19/25 14:20 Neut % (Auto) 91.3 % 07/19/25 14:20 Lymph % (Auto) 4.8 % 07/19/25 14:20 [place] % (Auto) 2.9 % 07/19/25 14:20 Eos % (Auto) 0.1 % 07/19/25 14:20 Baso % (Auto) 0.4 % 07/19/25 14:20 Neut # (Auto) 9.92 10^3/uL (1.8-7.7) H 07/19/25 14:20 Lymph # (Auto) 0.5 10^3/uL (0.8-4.8) L 07/19/25 14:20 [place] # (Auto) 0.3 10^3/uL (0.2-0.9) 07/19/25 14:20 Eos # (Auto) 0.0 10^3/uL (0.0-0.8) 07/19/25 14:20 Baso # (Auto) 0.0 10^3/uL (0.0-0.1) 07/19/25 14:20 Nucleated RBC % (auto) 0 % 07/19/25 14:20 Nucleated RBCs # 0.0 /100WBC 07/19/25 14:20 Sodium 140 mmol/L (136-145) 07/19/25 14:20 Potassium 4.4 mmol/L (3.5-5.1) 07/19/25 14:20 Chloride 101 mmol/L (98-107) 07/19/25 14:20 Carbon Dioxide 23 mmol/L (22-29) 07/19/25 14:20 Anion Gap 20.4 (5-19) H 07/19/25 14:20 BUN 20 mg/dL (8-23) 07/19/25 14:20 Creatinine 1.7 mg/dL (0.7-1.2) H 07/19/25 14:20 GFR Calculation 40.2 mL/min (90-130) L 07/19/25 14:20 Glucose 126 mg/dL (65-115) H 07/19/25 14:20 Calculated Osmolality 294 mOsm/kg (285-295) 07/19/25 14:20 Calcium 9.1 mg/dL (8.5-10.5) 07/19/25 14:20 Magnesium 1.7 mg/dL (1.7-2.3) 07/19/25 14:20 Total Bilirubin 1.2 mg/dL (0.15-1.2) 07/19/25 14:20 AST 15 U/L (0-40) 07/19/25 14:20 ALT 8 U/L (0-41) 07/19/25 14:20 Alkaline Phosphatase 75 U/L (40-130) 07/19/25 14:20 Total Protein 7.1 g/dL (6.6-8.7) 07/19/25 14:20 Albumin 4.4 g/dL (3.5-5.2) 07/19/25 14:20 Globulin 2.7 g/dL (1.3-4.6) 07/19/25 14:20 Lipase 80 U/L (13-60) H 07/19/25 14:20 Urine Color Yellow (Yellow) 07/19/25 18:10 Urine Appearance Clear (CLEAR) 07/19/25 18:10 Urine pH 5.5 (5-7) 07/19/25 18:10 Ur Specific [place] 1.079 (1.005-1.030) H 07/19/25 18:10 Urine Protein Trace (Negative) A 07/19/25 18:10 Urine Glucose (UA) Negative (Normal) 07/19/25 18:10 Urine Ketones Negative (Negative) 07/19/25 18:10 Urine Blood Negative (Negative) 07/19/25 18:10 Urine Nitrate Negative (Negative) 07/19/25 18:10 Urine Bilirubin Negative (Negative) 07/19/25 18:10 Urine Urobilinogen 0.2 mg/dL (Negative) 07/19/25 18:10 Ur Leukocyte Esterase Negative (Negative) 07/19/25 18:10 Urine RBC 0-2 /hpf (0-2) 07/19/25 18:10 Urine WBC 0-5 /hpf (0-5) 07/19/25 18:10 Ur Squamous Epith Cells 0-5 /hpf (0-5) 07/19/25 18:10 Amorphous Sediment Not Reportable 07/19/25 18:10 Urine Bacteria None seen /hpf (NONE) 07/19/25 18:10 Hyaline Casts 2.05 /lpf 07/19/25 18:10 All radiology interpretation(s) finalized by discharge Discharge Plan Discharge Patient Disposition: Home Clinical Impression: Gastroenteritis Condition: Stable Prescriptions: New ondansetron 4 mg tablet,disintegrating 4 mg PO Q8H PRN (Reason: nausea and vomiting) Qty: 14 0RF No Action dicyclomine 10 mg capsule 10 mg PO TID Qty: 14 0RF Discharge Orders: Discharge ED (Routine); Ordered 07/19/25 Ordered By: Chery Castillo Referrals: Kiki Hannon FNP-C [Primary Care Provider, Family Practice] Patient Instructions: Gastroenteritis (DC), Acute Nausea and Vomiting (DC), Patient Portal & Jon Instructions Activity Restrictions/Additional Instructions: As we discussed, continue to push fluids as much as possible. You may use the Zofran as needed for nausea and vomiting. Recommended bland/liquid diet and slowly advance as tolerated. You may follow-up with primary care next week if needed. You may return to the emergency department at anytime for severe or worsening abdominal pain, not improving vomiting or diarrhea, significant weakness, fevers, generally feeling worse or unwell, or any other concerns you may have. 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
--- NOTE | 2025-07-19 14:15 | ECG_ITS ---
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
[2025-07-19 14:34] LABS: Hematocrit 46.6 % (37-53); Hemoglobin 15.40 g/dL (11.27-16.99); Mean Corpuscular HGB Conc 33.0 g/dL (30-55); Mean Corpuscular Hemoglobin 28.5 pg (27-33); Mean Corpuscular Volume 86.3 fl (82-101); Nucleated Red Blood Cells % 0 %; Platelet Count 130 10^3/cmm (157-399); Red Blood Count 5.40 10^6/uL (3.85-5.65); White Blood Count 10.86 10^3/uL (3.29-11.43)
[2025-07-19 14:53] LABS: Alanine Aminotransferase 8 U/L (0-41); Albumin Level 4.4 g/dL (3.5-5.2); Alkaline Phosphatase 75 U/L (40-130); Anion Gap 20.4 (5-19); Aspartate Amino Transferase 15 U/L (0-40); Blood Urea Nitrogen 20 mg/dL (8-23); Calcium 9.1 mg/dL (8.5-10.5); Carbon Dioxide 23 mmol/L (22-29); Chloride 101 mmol/L (98-107); Globulin 2.7 g/dL (1.3-4.6); Glucose 126 mg/dL (65-115); Lipase 80 U/L (13-60); Magnesium 1.7 mg/dL (1.7-2.3); Osmolality Calculated 294 mOsm/kg (285-295); Potassium 4.4 mmol/L (3.5-5.1); Sodium 140 mmol/L (136-145); Total Protein 7.1 g/dL (6.6-8.7)
[2025-07-19] MEDS: ondansetron 2 mg/ML SDV 2 mL 4 MG IVP (15:32)
[2025-07-19 15:33] VITALS: RESP 17; O2SAT 97
[2025-07-19] MEDS: morphine 4 mg/mL SDV 1 mL IVP (15:33)
[2025-07-19 15:34] VITALS: BP 129/79; PULSE 97; O2SAT 97
[2025-07-19] MEDS: iohexol 350 mg/mL 500 mL Btl (per mL) IV (16:05)
[2025-07-19 17:00] VITALS: BP 142/70; PULSE 90; RESP 18; O2SAT 95
[2025-07-19 18:19] LABS: Glucose Urine UA Negative (Normal); Nitrate Urine Negative (Negative)
[2025-07-19 18:21] VITALS: BP 115/81; PULSE 96; RESP 16; O2SAT 92
[2025-07-19 18:23] LABS: Add Urine Microscopic? YES
[2025-07-19 18:31] LABS: Specific Gravity, Urine 1.079 (1.005-1.030)
[2025-07-19 18:39] VITALS: BP 115/81; PULSE 91; RESP 16; O2SAT 93
== END 2025-07-19 18:42 | disposition home or self-care (01) ==
PROVIDERS: Emergency Provider Physician Assistant; PCP Nurse Practitioner Family
DX: K52.9 Noninfective gastroenteritis and colitis, unspecified (principal)
CPT/HCPCS: 36415; 71045; 74177; 80053; 81001; 83690; 83735; 85025; 93005; 96374; 96375; 99285; J2270; J2405; J7030